=== PATIENT | female | born 1990 | race Two or more races ===

== ENCOUNTER 2016-10-25 17:39 | Inpatient (IN) | payer MEDICAID, OTHER ==
[~2016-10-25] VITALS: Ht 162.6 cm; Wt 65.3 kg
[2016-10-25 18:05] VITALS: BP 101/63
[2016-10-25] MEDS ORDERED: fentaNYL 100 mcg/2 mL IV ONE ×2 (18:30→20:45)
--- NOTE | 2016-10-25 18:35 | Emergency Room Report ---
History of Present Illness General Chief Complaint: General Complaint Source: Patient Present Illness HPI 26YOF with severe lower back pain, "leakage" from post-op wound. Large amount of fluid came out of wound per patient, when she got up this morning to use bathroom and sat on toilet. Also stating she wasnt discharged with "her pain regimen." Surgery was for ?trauma sustained when she fell on lower back 2 years ago. Denies lower extremity weakness, pain, numbness, tingling. Denies urinary/fecal incontinence. Denies fever/chills, urinary compliants. Spoke to Dr Ramirez who performed discectomy yesterday. States patient had no leakage at time of closure. Was advised for strict bedrest. States Dr Ralph (sp?) Neurosurgery to see patient here. I called Dr Ralph per Dr Ramirez's request, but he stated he is not available to see patient. No urgent need for MRI now Admit to Dr Brito requests iv vancomycin ppx as well Allergies: Coded Allergies: ACETAMINOPHEN (Verified Allergy, Unknown, 10/25/16) CODEINE (Verified Allergy, Unknown, 10/25/16) Patient History Past Medical History: none Past Surgical History: other - see hpi Pertinent Family History: none Now: No Immunizations: UTD Reviewed Nursing Documentation: PMH: Agreed, PSxH: Agreed Nursing Documentation-PMH Past Medical History: No Stated History Review of Systems All Other Systems: negative except mentioned in HPI Physical Exam Vital Signs Date Time Temp Pulse Resp B/P Pulse Ox O2 Delivery O2 Flow Rate FiO2 10/25/16 17:43 98.4 95 26 96/54 100 Room Air Sp02 EP Interpretation: reviewed, abnormal General Appearance: normal inspection, well appearing, no apparent distress, alert, GCS 15, non-toxic Head: normocephalic, atraumatic Eyes: bilateral eye EOMI, bilateral eye PERRL ENT: normal ENT inspection, hearing grossly normal, normal voice Neck: normal inspection, full range of motion, supple, no bony tend Respiratory: normal inspection, lungs clear, normal breath sounds, no respiratory distress, no retraction, no wheezing Cardiovascular #1: regular rate, rhythm, no edema Gastrointestinal: normal inspection, normal bowel sounds, non tender, soft, no guarding, no hernia Genitourinary: no CVA tenderness Musculoskeletal: other - Lower back: 6cm linear post-op scar. Minor wound dehiscence at superior portion. Ttp around superior part of wound with serosanguinous leakage on palpation. No palpable mass, abscess. No pus drainage. No surrounging wound erythema or cellulitis Neurologic: normal inspection, alert, oriented x3, responsive, platform operations director III-XII nml as tested, motor strength/tone normal, speech normal Psychiatric: normal inspection, judgement/insight normal, mood/affect normal Skin: normal inspection, normal color, no rash Medical Decision Making Diagnostic Impression: Primary Impression: Lower back pain Qualified Codes: M54.5 - Low back pain Additional Impression: Leukocytosis Qualified Codes: D72.825 - Bandemia ER Course Lower back pain s/p diskectomy yesterday - Afebrile initially then spiked fever in ED. VS otherwise stable. - Leuks ~18K - No metabolic abnormalities - Patient has not given Urine at time of admission - Empiric dose of Vanc given in ED for post-op infection. Blood Cx pending - No sign of abscess or neuro deficit to warrant transfer or STAT MRI at this time - Endorsed to Dr Brito for med/surg admission - Dr Ramirez to see patient in morning. Last Vital Signs Date Time Temp Pulse Resp B/P Pulse Ox O2 Delivery O2 Flow Rate FiO2 10/25/16 17:43 98.4 95 26 96/54 100 Room Air Status: improved Disposition: ADMITTED INPATIENT Condition: Serious ERASMO FISHER M.D. October 25, 2016 18:35
[2016-10-25] MEDS ORDERED: Vancomycin 1 GM in NS 275 ML IVPB ONE (18:45)
[2016-10-25 18:57] LABS: INR 1.1 (0.9-1.1); PROTHROMBIN TIME 10.7 SEC (9.30-11.50)
[2016-10-25 19:00] LABS: ALANINE AMINOTRANSFERASE 18 U/L (3-33); ALBUMIN/GLOBULIN RATIO 1.3 (1.0-2.7); ANION GAP 14 (5-15); ASPARTATE AMINO TRANSFERASE 47 U/L (5-40); CARBON DIOXIDE 26 mEQ/L (20-30); CHLORIDE 98 mEQ/L (98-107); CREATININE 0.8 mg/dL (0.5-0.9); GLOMERULAR FILTRATION RATE > 60 mL/min (>60); HEMOLYSIS 3; POTASSIUM 3.9 mEQ/L (3.4-4.9); SODIUM 138 mEQ/L (135-145); TOTAL PROTEIN 7.2 g/dL (6.6-8.7)
[2016-10-25] MEDS ORDERED: Tubing IV Cassette IV ONE (19:09)
[2016-10-25] MEDS ORDERED: NS 275 ML ONE (19:09)
[2016-10-25] MEDS ORDERED: Vancomycin 1gm inj IVPB ONE (19:09)
[2016-10-25] MEDS ORDERED: NORCO 10-325 T1 EACH ORAL (19:14)
[2016-10-25] MEDS ORDERED: CEPHALEXIN500 MG ORAL (19:14)
[2016-10-25] MEDS ORDERED: ZOFRAN4 M3 ORAL (19:14)
[2016-10-25] MEDS ORDERED: DILAUDID4 MG ORAL (19:14)
[2016-10-25 19:25] LABS: BASOPHILS % (AUTO) 0.2 % (0.0-2.0); LYMPHOCYTES % (AUTO) 14.3 % (20.0-45.0); MEAN CORPUSCULAR HEMOGLOBIN 34.8 PG (27.0-31.0); MEAN CORPUSCULAR HGB CONC 37.8 G/DL (32.0-36.0); MEAN CORPUSCULAR VOLUME 92 FL (80-99); MEAN PLATELET VOLUME 8.4 FL (6.5-10.1); MONOCYTES % (AUTO) 3.5 % (1.0-10.0); NEUTROPHILS % (AUTO) 81.9 % (45.0-75.0); PLATELET COUNT 197 K/UL (150-450); RED BLOOD COUNT 3.67 M/UL (4.20-5.40); RED CELL DISTRIBUTION WIDTH 10.9 % (11.6-14.8); WHITE BLOOD COUNT 17.7 K/UL (4.8-10.8)
[2016-10-25 19:28] LABS: BILIRUBIN,DIRECT 0.2 mg/dL (0.1-0.3)
[2016-10-25 19:30] VITALS: BP 108/47
[2016-10-25 20:18] LABS: APPEARANCE,URINE CLEAR; KETONES,URINE NEGATIVE (NEGATIVE); LEUKOCYTE ESTERASE ,URINE NEGATIVE (NEGATIVE); NITRITE,URINE NEGATIVE (NEGATIVE); PH,URINE 6 (4.5-8.0); PROTEIN,URINE NEGATIVE (NEGATIVE); UROBILINOGEN,URINE NORMAL MG/DL (0.0-1.0)
[2016-10-25 20:25] LABS: BACTERIA,URINE FEW /HPF; SQUAMOUS EPITHELIAL CELL,UR FEW /LPF (NONE/OCC); WBC,URINE 0-2 /HPF (0 - 2)
[2016-10-25] MEDS ORDERED: LR 1000ml 1,000 ML IV SCH (20:45)
[2016-10-25] MEDS ORDERED: Cefepime HCl 2 GM in D5W 110 ML IVPB ONE (21:15)
[2016-10-25 21:37] VITALS: BP 106/67
[2016-10-25] MEDS ORDERED: D5W 55 ML IV ONE (21:56)
[2016-10-25] MEDS ORDERED: Cefepime 2gm ONE (21:56)
[2016-10-25 22:40] VITALS: BP 109/70
--- NOTE | 2016-10-25 22:40 | History & Physical ---
History and Physical History & Physicial Chart reviewed, Patient examined and discussed with Dr. Ramirez. 26 year old female with h/o work-related injury to LS spine who underwent LS spine surgery( L4-L5 and L5-S1 Right sided decompression and foraminotomy) 10/[address] Ramirez. Patient presents with intractable pain and spinal leak. She has been evaluated in ER, and being admitted for pain management and observation with bed rest and IV. antibiotics. EMMA JENKINS October 25, 2016 22:40
[2016-10-25] MEDS ORDERED: Zolpidem 5mg tab ORAL PRN (23:30)
[2016-10-25] MEDS ORDERED: D5 1/2NS w/KCl 20mEq 1,000 ML IV SCH (23:30)
[2016-10-26] VITALS (13 sets, daily range): BP systolic 87–126; BP diastolic 49–69
[2016-10-26] MEDS: Norco 7.5mg/325mg tab ORAL PRN ×2 (00:50→05:44)
--- NOTE | 2016-10-26 03:45 | History and Physical Report ---
DATE OF ADMISSION: 10/25/2016 ATTENDING PHYSICIAN: Shellie Ramirez M.D. REASON FOR ADMISSION: Intractable pain with spinal fluid leak after spinal surgery. HISTORY OF PRESENT ILLNESS: The patient is a 26-year-old female, who suffered a work-related injury resulting in back pain and lower extremity pain radiation and underwent decompression and foraminotomy of the L4-L5 and L5-S1. The patient presented today with complaint of intractable pain and was also noted to have some spinal fluid leak from the wound site. The patient was evaluated in the emergency room and was given IV antibiotics in view of the elevated temperature. She is being admitted for further management , strict bedrest and pain management as well as intravenous antibiotics. PAST MEDICAL HISTORY: Unremarkable. MEDICATIONS: The patient was given fentanyl in the emergency room for pain control. She has been started on IV vancomycin and IV cefepime. ALLERGIES: None known. REVIEW OF SYSTEMS: General: Denies weight loss. The patient has had some chills in the emergency room. Pulmonary: Denies cough or sputum production. Cardiovascular: Denies chest pain or palpitations. Gastrointestinal: Denies dysphagia, dyspepsia, abdominal pain, nausea, vomiting, or diarrhea. The patient has had constipation. Genitourinary: Denies dysuria or frequency. PHYSICAL EXAMINATION: GENERAL: The patient is alert and oriented, pleasant female, in mild discomfort. VITAL SIGNS: Blood pressure is 94/60 up to 110/70 with a heart rate of 103, and sinus tachycardia. HEENT: Unremarkable. NECK: Supple. LUNGS: Without rales or wheezes. CARDIAC: S1, S2 are normal without S3, S4. Jugular venous pressure is normal. ABDOMEN: Soft and nontender without hepatosplenomegaly. Bowel sounds are present. EXTREMITIES: Without cyanosis, clubbing, or edema. BACK: Reveals fresh surgical scar without evidence of infection or erythema. A small amount of leakage is noted. The pads are moist. NEUROLOGIC: Nonfocal. LABORATORY DATA: WBC was 17.7, hemoglobin 12.8, and hematocrit 33.7 with 82% neutrophils and 14% lymphocytes. BMP was unremarkable, glucose is 118 and bilirubin 1.3. AST is 47. PT and PTT are within normal limits. IMPRESSION: 1. Status post spine surgery with intractable pain. 2. Spinal leak due to dural tear. 3. Leukocytosis and fever. Rule out infection or possible reaction to spinal leak. PLAN: The patient will be admitted to the medical/surgical floor. We will be put at bedrest in supine position. Diamox 250 every 6 hours will be started . IV antibiotics with vancomycin and cefepime has been initiated. ID consultation has been requested from Dr. Fraga. We will monitor the patient's progress and plan an MRI within the next few days and confirmed continued leak location. At this point, we will manage the spinal fluid leakage. Bola Brito M.D. DR: Jhoana JOB#: [id number] CC: MICHAEL
[2016-10-26] MEDS ORDERED: Vancomycin 1250mg/D5W 275ml IVPB SCH ×2 (07:00)
[2016-10-26] MEDS ORDERED: Vancomycin 750mg/D5W 275ml IVPB SCH ×4 (08:00→23:00)
--- NOTE | 2016-10-26 08:55 | Consultation ---
Consult Note Consult Note sp l4-s1 laminectomy/foraminotomy with dural tear, and with persistent csf leak Assessment/Plan full note dictated plan MRI will require redo lami and dural repair PIERRE GRIGGS Oct 26, 2016 08:55
[2016-10-26] MEDS ORDERED: acetaZOLAMIDE 500mg Inj IVP SCH (09:00)
[2016-10-26] MEDS ORDERED: Docusate 100mg cap ORAL SCH (09:00)
[2016-10-26] MEDS ORDERED: Cefepime HCl 2 GM in D5W 110 ML IVPB SCH (09:00)
--- NOTE | 2016-10-26 10:15 | Consultation ---
DATE OF CONSULTATION: 10/26/2016 SPINE SURGICAL CONSULTATION: REFERRING PHYSICIANS: Shellie Ramirez M.D. and Bola Brito M.D. REASON FOR ADMISSION: CSF leak status post laminectomy L4, L5, and S1. HISTORY OF PRESENT ILLNESS: The patient is 26-year-old woman, who underwent surgical decompression two days ago at L4-L5 and L5-S1. During the surgery, there was a CSF leak which was repaired secondarily. It was covered with Dura Seal, FloSeal, and muscle graft per Dr. Ramirez, who contacted me this morning. The patient went home with instructions on bedrest, however, the patient started developing leakage from her back wound and headaches. She came in through the emergency room also with an elevated temperature and leukocytosis and has been on antibiotics per Dr. Fraga. The patient indicates that most of the leg pain has resolved as well as the numbness and tingling, however, she has subjective weakness in her right lower extremity as well as positional headaches. When standing, she has more significant headache than when lying flat. PAST MEDICAL HISTORY: Unremarkable. MEDICATIONS: I have reviewed the medication reconciliation report. She is on IV antibiotics per Infectious Disease. ALLERGIES: No known drug allergies. PHYSICAL EXAMINATION: The patient examined while lying flat in the hospital bed. She has abdominal tenderness on the left lower quadrant. She has positive straight leg raise on the right lower extremity. Motor strength testing is 5/5 throughout with the exception of right gastroc soleus which is 4/5. Reflexes are symmetric in both lower extremities. Sensation is intact both lower extremities. Examination of the back wound demonstrates 4 to 5 inches incision from L3 through S2. There is drainage of clear fluid from the upper third of her incision. The dressing which was changed earlier this morning is 50% saturated. The surgical carline are intact. There is no erythema or cellulitis. IMPRESSION: 1. Status post two-level lumbar laminectomy at L4, L5, S1 with intraoperative dural tear with ongoing cerebrospinal fluid leak. 2. Leukocytosis and fever being managed by Infectious Disease. PLAN: We will need to obtain a MRI of the lumbar spine and plan surgical decompression/dural repair. Surgery will be scheduled accordingly once we contact the health insurance adjuster for authorization. Amador Payton Lott DR: Juan JOB#: [id number] CC:
[2016-10-26 12:26] LABS: BASOPHILS % (AUTO) 0.5 % (0.0-2.0); EOSINOPHILS % (AUTO) 0.3 % (0.0-3.0); LYMPHOCYTES % (AUTO) 11.1 % (20.0-45.0); MEAN CORPUSCULAR HEMOGLOBIN 31.8 PG (27.0-31.0); MEAN CORPUSCULAR HGB CONC 34.4 G/DL (32.0-36.0); MEAN CORPUSCULAR VOLUME 92 FL (80-99); MEAN PLATELET VOLUME 8.2 FL (6.5-10.1); NEUTROPHILS % (AUTO) 81.1 % (45.0-75.0); PLATELET COUNT 235 K/UL (150-450); RED BLOOD COUNT 4.01 M/UL (4.20-5.40); RED CELL DISTRIBUTION WIDTH 11.2 % (11.6-14.8)
--- NOTE | 2016-10-26 12:32 | Diagnostic Imaging Report ---
Indication: Intractable low back pain, spinal fluid leak from site of discectomy surgery performed 10/24/2016 Technique: Sagittal T1 and T2 fast spin echo, sagittal STIR, axial T1 and T2 fast spin-echo images of the lumbar spine Comparison: None Findings: There is a laminotomy defect involving the right L5 lamina. There is a small epidural fluid collection which measures up to 3 mm thick extending approximately 2 cm inferior to the laminotomy defect. This questionably communicates with a larger area of fluid which is immediately superficial to the right-sided L3, L4, L5, and S1 posterior elements. This fluid collection measures approximately 4.2 cm AP by 2 cm transverse by 11 cm craniocaudad. A small amount of fluid also tracks to the left of midline, likewise between the posterior elements and paraspinous musculature. There is also considerable bilateral symmetric edema of the posterior subcutaneous fat which extends cephalad in the thoracic region well beyond the imaging volume and extends caudad to the retro-sacral region. There is no clear communication of the deep collection with the superficial edema or the skin, although there is questionably some communication at the L3 level, best seen on axial image 15 of series 7. Extending from the mid L2 level to the mid L4 level, there is suggestion of slight anterior displacement of the nerve roots, particularly just to the right of midline. However, no definite abnormality of the configuration of the thecal sac At L4-5, there is degenerative disc narrowing and posterior disc protrusion, disc protruding approximately 3 mm posterior to the posterior elements of L4 and demonstrating a small high intensity zone. This results in mild narrowing of the spinal canal at this level, spinal canal narrowed by under 25%. The bulging disc enters but does not severely compromise the neural foramina bilaterally. The previously described small epidural collection is located inferior to the protruding disc. There is also mild posterior disc protrusion with a small high intensity zone at L5-S1, disc protruding approximately 2 mm beyond the posterior margin of the vertebral bodies, but not resulting in any significant spinal stenosis. The conus medullaris terminates at the inferior L1 level. The vertebral body marrow signal is preserved. The bony alignment is normal. The remaining discs demonstrate normal height and signal. At the remaining levels, no significant disc bulge or protrusion, spinal stenosis, or neural foraminal stenosis. Extraspinal soft tissues are significant for free fluid within the pelvic cul-de-sac. There are multiple cervical nabothian is. There is fluid within the endometrial cavity and endocervical canal. Impression: Irregular 4.2 x 2 x 11 cm fluid collection between the L3, L4, L5, and S1 posterior elements. This could represent a seroma or other routine postsurgical fluid collection given history of recent surgery. However, given stated clinical history of cerebrospinal fluid leak to the skin, it is also possible that this represents leaked cerebrospinal fluid. There is possible communication with the spinal canal at the level of the right L5 laminotomy defect to the right of midline, particularly in view of an adjacent small epidural collection at this level. It is possible that this is where the clinically evident cerebral cerebrospinal fluid leak is located, although this cannot be stated with any certainty. There is also fairly extensive edema of the lumbar subcutaneous fat. This is most likely postsurgical in nature, but communication with the deeper collection cannot be ruled out, particularly in view of the stated clinical history of clinically evident spinal fluid leak. Unusual distribution of the nerve roots between L2 and L4, appearing somewhat anteriorly displaced. This is most likely physiologic, as no other abnormality of the thecal sac is demonstrated. The possibility of a subtl -- e extra dural fluid collection in this area resulting in mass effect should be considered, but is highly unlikely Disc disease at L4-5 and L5-S1, as described. Mild spinal stenosis at L4-5. Incidental finding of likely physiologic free pelvic fluid, fluid within the endometrial cavity, multiple nabothian cysts
[2016-10-26 12:45] LABS: ANION GAP 17 (5-15); CALCIUM 8.9 mg/dL (8.6-10.2); CARBON DIOXIDE 21 mEQ/L (20-30); CHLORIDE 97 mEQ/L (98-107); CREATININE 0.7 mg/dL (0.5-0.9); GLOMERULAR FILTRATION RATE > 60 mL/min (>60); HEMOLYSIS 5; POTASSIUM 4.1 mEQ/L (3.4-4.9); SODIUM 135 mEQ/L (135-145)
--- NOTE | 2016-10-26 13:35 | Cardiology Progress Note ---
Assessment/Plan Status Narrative 1. H/O work-related injury of LS spine 2. s/p LS spine decompression and foraminotomy R side L4-L5 and L5-S1- 08/24/16 3. CSF leak due to dural tear 4. Leukocytosis- improving 5. Tachycardia- ? volume depletion vs anxiety Assessment/Plan IV NS bolus now pre-op.then at 125 cc/h. NPO Pain meds Zofran PRN CXR for baseline. Bed rest. Diamox 250 mg Q6h. Proceed with surgery today. Discussed with Dr. Ramirez and Dr. Lott. Patient is stable to proceed with surgery today. Discussed with Family and with RN. Subjective Cardiovascular: Reports: no symptoms, Denies: chest pain, edema Respiratory: Denies: cough, orthopnea Gastrointestinal/Abdominal: Reports: no symptoms Genitourinary: Reports: no symptoms, other - [place] Subjective Seen by Dr. Lott, planned for surgery this afternoon. Had increased H/A today. Pain improved. Had liquids at 8 AM. c?o nausea. Objective Last 24 Hour Vital Signs Date Time Temp Pulse Resp B/P Pulse Ox O2 Delivery O2 Flow Rate FiO2 10/26/16 12:00 99.0 125 20 102/64 97 Room Air 10/26/16 11:37 97.7 10/26/16 08:00 97.7 111 18 104/58 95 Room Air 10/26/16 04:00 98.4 102 18 87/59 100 Room Air 10/25/16 22:49 98.4 97 16 106/67 98 Room Air 10/25/16 22:40 105 20 109/70 98 Room Air 10/25/16 21:37 98.4 97 16 106/67 98 Room Air 10/25/16 21:18 98.5 10/25/16 19:46 98.5 10/25/16 19:30 100.9 113 21 108/47 97 Room Air 10/25/16 18:05 89 19 101/63 100 Room Air 10/25/16 17:43 98.4 95 26 96/54 100 Room Air EENT: PERRL/EOMI Neck: non-tender, supple Cardiovascular: normal rate, regular rhythm, no gallop/murmur Respiratory/Chest: lungs clear Abdomen: normal bowel sounds, non tender, soft, no organomegaly, no mass Extremities: normal range of motion, non-tender, normal inspection, no calf tenderness, no swelling Intake and Output 10/25/16 10/26/16 19:00 07:00 Intake Total 275 ml Output Total 1130 ml Balance -855 ml Intake IV Total 275 ml Output Urine Total 1130 ml # Voids 1 CXR: other - pending Laboratory Tests Test 10/25/16 18:00 10/25/16 19:50 10/26/16 12:15 White Blood Count 17.7 K/UL (4.8-10.8) H 14.0 K/UL (4.8-10.8) H Red Blood Count 3.67 M/UL (4.20-5.40) L 4.01 M/UL (4.20-5.40) L Hemoglobin 12.8 G/DL (12.0-16.0) 12.8 G/DL (12.0-16.0) Hematocrit 33.7 % (37.0-47.0) L 37.1 % (37.0-47.0) Mean Corpuscular Volume 92 FL (80-99) 92 FL (80-99) Mean Corpuscular Hemoglobin 34.8 PG (27.0-31.0) H 31.8 PG (27.0-31.0) H Mean Corpuscular Hemoglobin Concent 37.8 G/DL (32.0-36.0) H 34.4 G/DL (32.0-36.0) Red Cell Distribution Width 10.9 % (11.6-14.8) L 11.2 % (11.6-14.8) L Platelet Count 197 K/UL (150-450) 235 K/UL (150-450) Mean Platelet Volume 8.4 FL (6.5-10.1) 8.2 FL (6.5-10.1) Neutrophils (%) (Auto) 81.9 % (45.0-75.0) H 81.1 % (45.0-75.0) H Lymphocytes (%) (Auto) 14.3 % (20.0-45.0) L 11.1 % (20.0-45.0) L Monocytes (%) (Auto) 3.5 % (1.0-10.0) 7.0 % (1.0-10.0) Eosinophils (%) (Auto) 0.0 % (0.0-3.0) 0.3 % (0.0-3.0) Basophils (%) (Auto) 0.2 % (0.0-2.0) 0.5 % (0.0-2.0) Prothrombin Time 10.7 SEC (9.30-11.50) Prothromb Time International Ratio 1.1 (0.9-1.1) Activated Partial Thromboplast Time 28 SEC (23-33) Sodium Level 138 mEQ/L (135-145) 135 mEQ/L (135-145) Potassium Level 3.9 mEQ/L (3.4-4.9) 4.1 mEQ/L (3.4-4.9) Chloride Level 98 mEQ/L (98-107) 97 mEQ/L (98-107) L Carbon Dioxide Level 26 mEQ/L (20-30) 21 mEQ/L (20-30) Anion Gap 14 (5-15) 17 (5-15) H Blood Urea Nitrogen 8 mg/dL (7-23) 6 mg/dL (7-23) L Creatinine 0.8 mg/dL (0.5-0.9) 0.7 mg/dL (0.5-0.9) Estimat Glomerular Filtration Rate > 60 mL/min (>60) > 60 mL/min (>60) Glucose Level 118 mg/dL (74-106) H 100 mg/dL (74-106) Calcium Level 9.0 mg/dL (8.6-10.2) 8.9 mg/dL (8.6-10.2) Total Bilirubin 1.3 mg/dL (0.0-1.2) H Direct Bilirubin 0.2 mg/dL (0.1-0.3) Aspartate Amino Transf (AST/SGOT) 47 U/L (5-40) H Alanine Aminotransferase (ALT/SGPT) 18 U/L (3-33) Alkaline Phosphatase 46 U/L (35-104) Total Protein 7.2 g/dL (6.6-8.7) Albumin 4.1 g/dL (3.5-5.2) Globulin 3.1 g/dL Albumin/Globulin Ratio 1.3 (1.0-2.7) Urine Color Pale yellow Urine Appearance Clear Urine pH 6 (4.5-8.0) Urine Specific [place] 1.010 (1.005-1.035) Urine Protein Negative (NEGATIVE) Urine Glucose (UA) Negative (NEGATIVE) Urine Ketones Negative (NEGATIVE) Urine Occult Blood 1+ (NEGATIVE) H Urine Nitrite Negative (NEGATIVE) Urine Bilirubin Negative (NEGATIVE) Urine Urobilinogen Normal MG/DL (0.0-1.0) Urine Leukocyte Esterase Negative (NEGATIVE) Urine RBC 2-4 /HPF (0 - 2) H Urine WBC 0-2 /HPF (0 - 2) Urine Squamous Epithelial Cells Few /LPF (NONE/OCC) Urine Bacteria Few /HPF (NONE) Urine HCG, Qualitative Negative Objective EKG: Sinus tachy, NS ST-T changes. EMMA JENKINS Oct 26, 2016 13:35
[2016-10-26] MEDS ORDERED: NS 250 ML IVPB ONE (14:00)
[2016-10-26] MEDS ORDERED: D5 1/2NS w/KCl 20mEq 1,000 ML IV SCH ×2 (15:00→16:00)
[2016-10-26] MEDS ORDERED: Bupivacaine w/Epi 0.5% 30ml Vial INJ ONE (15:04)
[2016-10-26] MEDS ORDERED: Thrombin 5000 units TOPIC ONE (15:04)
[2016-10-26] MEDS ORDERED: Bacitracin 50000 Units Vial ONE ×2 (15:05→19:34)
[2016-10-26] MEDS ORDERED: Gelfoam Absorbable 1gm powder pkt TOPIC ONE (15:05)
[2016-10-26] MEDS ORDERED: Thrombin 5000 units spray kit TOPIC ONE (15:05)
--- NOTE | 2016-10-26 15:28 | Pre-Procedure Note/Attestation ---
Pre-Procedure Note/Attestation Complete Prior to Procedure Procedure Narrative: sp l4-s1 laminectomy with dural tear Indications for Procedure Pre-Operative Diagnosis: l4-s1 redo laminectomy and repair of dural leak Attestation I attest that I discussed the nature of the procedure; its benefits; risks and complications; and alternatives (and the risks and benefits of such alternatives ), prior to the procedure, with the patient (or the patient's legal airline security representative). I attest that, if there was a reasonable possibility of needing a blood transfusion, the patient (or the patient's legal airline security representative) was given the [facility] standardized written summary, pursuant to the [place] Blood Safety Act ([place] Health and Safety Code # 1645, as amended). I attest that I re-evaluated the patient just prior to the surgery and that there has been no change in the patient's H&P, except as documented below: PIERRE GRIGGS Oct 26, 2016 15:28
[2016-10-26] MEDS ORDERED: Midazolam 2mg/2ml Inj ONE (15:30)
[2016-10-26] MEDS ORDERED: Lidocaine 1% MPF 10mg/ml 5ml ONE (15:30)
[2016-10-26] MEDS ORDERED: fentaNYL 100 mcg/2 mL IV ONE (15:30)
[2016-10-26] MEDS ORDERED: Dexamethasone 4mg/ml vial ONE (15:30)
[2016-10-26] MEDS ORDERED: LR 1000ml ONE (15:30)
[2016-10-26] MEDS ORDERED: Glycopyrrolate 0.2mg/ml 1ml Vial ONE (15:30)
[2016-10-26] MEDS ORDERED: Propofol 10mg/ml 100ml btl IV ONE (15:30)
[2016-10-26] MEDS ORDERED: Neostigmine 1mg/ml 10ml Inj ONE (15:30)
[2016-10-26] MEDS ORDERED: Nimbex 2mg/ml Inj 10ML IVP ONE (15:30)
[2016-10-26] MEDS ORDERED: NS Irrig 1000ml ONE (15:30)
--- NOTE | 2016-10-26 15:37 | Brief Operative Note ---
Immediate Post Operative Note Operative Note Pre-op Diagnosis: sp l4-s1 laminectomy with dural leak Procedure: l4-s1 redo laminectomy and repair of dural leak Post-op Diagnosis: same as pre-op Findings: consistent w/pre-op dx studies Surgeon: dewey Marble Machine Tender: stacey tomlinson Anesthesiologist: ally Queen Anesthesia: general Specimen: none Complications: none Condition: stable Estimated Blood Loss: minimal Drains: none PIERRE GRIGGS Oct 26, 2016 15:37
--- NOTE | 2016-10-26 15:51 | Diagnostic Imaging Report ---
Indication: Shortness of breath Technique: One view of the chest Comparison: none Findings: The lungs and pleural space are clear. Heart size is upper limits of normal. Surgical skin carline are noted over the lower lumbar spine. Impression: No acute process
--- NOTE | 2016-10-26 16:32 | Anethesia Preoperative Eval ---
Anesthesia Pre-op PMH/ROS General Date of Evaluation: Oct 26, 2016 Time of Evaluation: 15:21 Anesthesiologist: Bethany ASA Score: ASA 1 - Emergency Mallampati Score Class I : Soft palate, uvula, fauces, pillars visible Class II: Soft palate, uvula, fauces visible Class III: Soft palate, base of uvula visible Class IV: Only hard plate visible Mallampati Classification: Class I Surgeon: Oren Diagnosis: Back Pain Surgical Procedure: Repair Dural Leak Anesthesia History: none Family History: no anesthesia problems Allergies: Coded Allergies: ACETAMINOPHEN (Verified Allergy, Unknown, 10/25/16) CODEINE (Verified Allergy, Unknown, 10/25/16) Medications: see eMAR Past Medical History PSxH Narrative: Lumbar Spine SX 2 days Anesthesia Pre-op Phys. Exam Physician Exam Last Vital Signs Date Time Temp Pulse Resp B/P Pulse Ox O2 Delivery O2 Flow Rate FiO2 10/26/16 12:00 99.0 125 20 102/64 97 Room Air Constitutional: NAD Neurologic: CN 2-12 intact Cardiovascular: RRR Respiratory: CTA Gastrointestinal: S/NT/ND Airway Exam Mallampati Score: Class I MO: full ROM: full Teeth: intact Anesthesia Pre-op A/P Labs Hematology Test 10/25/16 18:00 10/26/16 12:15 White Blood Count 17.7 K/UL (4.8-10.8) H 14.0 K/UL (4.8-10.8) H Red Blood Count 3.67 M/UL (4.20-5.40) L 4.01 M/UL (4.20-5.40) L Hemoglobin 12.8 G/DL (12.0-16.0) 12.8 G/DL (12.0-16.0) Hematocrit 33.7 % (37.0-47.0) L 37.1 % (37.0-47.0) Mean Corpuscular Volume 92 FL (80-99) 92 FL (80-99) Mean Corpuscular Hemoglobin 34.8 PG (27.0-31.0) H 31.8 PG (27.0-31.0) H Mean Corpuscular Hemoglobin Concent 37.8 G/DL (32.0-36.0) H 34.4 G/DL (32.0-36.0) Red Cell Distribution Width 10.9 % (11.6-14.8) L 11.2 % (11.6-14.8) L Platelet Count 197 K/UL (150-450) 235 K/UL (150-450) Mean Platelet Volume 8.4 FL (6.5-10.1) 8.2 FL (6.5-10.1) Neutrophils (%) (Auto) 81.9 % (45.0-75.0) H 81.1 % (45.0-75.0) H Lymphocytes (%) (Auto) 14.3 % (20.0-45.0) L 11.1 % (20.0-45.0) L Monocytes (%) (Auto) 3.5 % (1.0-10.0) 7.0 % (1.0-10.0) Eosinophils (%) (Auto) 0.0 % (0.0-3.0) 0.3 % (0.0-3.0) Basophils (%) (Auto) 0.2 % (0.0-2.0) 0.5 % (0.0-2.0) Coagulation Test 10/25/16 18:00 Prothrombin Time 10.7 SEC (9.30-11.50) Prothromb Time International Ratio 1.1 (0.9-1.1) Activated Partial Thromboplast Time 28 SEC (23-33) Chemistry Test 10/25/16 18:00 10/26/16 12:15 Sodium Level 138 mEQ/L (135-145) 135 mEQ/L (135-145) Potassium Level 3.9 mEQ/L (3.4-4.9) 4.1 mEQ/L (3.4-4.9) Chloride Level 98 mEQ/L (98-107) 97 mEQ/L (98-107) L Carbon Dioxide Level 26 mEQ/L (20-30) 21 mEQ/L (20-30) Anion Gap 14 (5-15) 17 (5-15) H Blood Urea Nitrogen 8 mg/dL (7-23) 6 mg/dL (7-23) L Creatinine 0.8 mg/dL (0.5-0.9) 0.7 mg/dL (0.5-0.9) Estimat Glomerular Filtration Rate > 60 mL/min (>60) > 60 mL/min (>60) Glucose Level 118 mg/dL (74-106) H 100 mg/dL (74-106) Calcium Level 9.0 mg/dL (8.6-10.2) 8.9 mg/dL (8.6-10.2) Total Bilirubin 1.3 mg/dL (0.0-1.2) H Direct Bilirubin 0.2 mg/dL (0.1-0.3) Aspartate Amino Transf (AST/SGOT) 47 U/L (5-40) H Alanine Aminotransferase (ALT/SGPT) 18 U/L (3-33) Alkaline Phosphatase 46 U/L (35-104) Total Protein 7.2 g/dL (6.6-8.7) Albumin 4.1 g/dL (3.5-5.2) Globulin 3.1 g/dL Albumin/Globulin Ratio 1.3 (1.0-2.7) Urine Test Test 10/25/16 19:50 Urine HCG, Qualitative Negative Risk Assessment & Plan Assessment: ASA 1E Status Change Before Surgery: No Pre-Antibiotics Dru Grams Ancef IV Given Within 1 Hr of Incision: Yes Time Given: 15:46 Bret Sims MD Oct 26, 2016 16:32
[2016-10-26] MEDS ORDERED: LR 1000ml 1,000 ML IVLG SCH (16:35)
--- NOTE | 2016-10-26 16:38 | Immediate Post-Op Evaluation ---
Immediate Post-Op Evalulation Immediate Post-Op Evalulation Procedure: Repair Lumbar Dural Leak Date of Evaluation: Oct 26, 2016 Time of Evaluation: 18:40 IV Fluids: 1000 LR Blood Products: 0 Estimated Blood Loss: 50 Urinary Output: 650 Blood Pressure Systolic: 117 Blood Pressure Diastolic: 69 Pulse Rate: 103 Respiratory Rate: 16 O2 Sat by Pulse Oximetry: 98 Temperature (Fahrenheit): 97.8 Pain Score (1-10): 3 Nausea: No Vomiting: No Complications 0 Patient Status: awake, reacts, patent, extubated, none Hydration Status: adequate Dru Grams Ancef IV Given Within 1 Hr of Incision: Yes Time Given: 15:46 Bret Sims MD Oct 26, 2016 16:38
[2016-10-26] MEDS ORDERED: Midazolam 2mg/2ml Inj IVP PRN (16:45)
[2016-10-26] MEDS ORDERED: Ketorolac 60mg Inj IV PRN (16:45)
[2016-10-26] MEDS ORDERED: Metoclopramide 10mg/2ml Inj IVP PRN ×2 (16:45→18:00)
[2016-10-26] MEDS ORDERED: fentaNYL 100 mcg/2 mL IV PRN (16:45)
[2016-10-26] MEDS ORDERED: Atropine Inj 1mg/10ml Syr IV PRN (16:45)
[2016-10-26] MEDS ORDERED: Meperidine 25mg/0.5ml Inj IV PRN (16:45)
[2016-10-26] MEDS ORDERED: DiphenhydrAMINE 50mg/ml Inj IVP PRN (16:45)
[2016-10-26] MEDS ORDERED: Hydromorphone 0.5mg/0.5ml inj IVP PRN (16:45)
[2016-10-26] MEDS ORDERED: Ketorolac 30mg Inj IV PRN (16:45)
[2016-10-26] MEDS ORDERED: Norco 5mg/325mg tab ORAL PRN ×2 (16:45→18:00)
[2016-10-26] MEDS ORDERED: Norco 7.5mg/325mg tab ORAL PRN ×3 (16:45→18:00)
[2016-10-26] MEDS ORDERED: LORazepam Inj 2mg/ml 1ml IV PRN (16:45)
--- NOTE | 2016-10-26 16:47 | Infectious Diseases Prog Note ---
Assessment/Plan Assessment/Plan Full consult dictated: A) 1) dural/csf leak, leukocytosis, rule out meningitis, fevers, ? sepsis - s/p repair dural leak 2) s/p L4-S1 laminectomy, hx lbp 3) allergies - acetaminophen and codeine 4) sh-negative, fh-neg, mar noted, d/w RN 5) d/w RN P) 1) vancomycin and cefepime for now 2) check csf if available 3) watch labs 4) d/w Dr. Brito 5) thank you Subjective Allergies: Coded Allergies: ACETAMINOPHEN (Verified Allergy, Unknown, 10/25/16) CODEINE (Verified Allergy, Unknown, 10/25/16) Objective Vital Signs Last 24 Hour Vital Signs Date Time Temp Pulse Resp B/P Pulse Ox O2 Delivery O2 Flow Rate FiO2 10/26/16 12:00 99.0 125 20 102/64 97 Room Air 10/26/16 11:37 97.7 10/26/16 08:00 97.7 111 18 104/58 95 Room Air 10/26/16 04:00 98.4 102 18 87/59 100 Room Air 10/25/16 22:49 98.4 97 16 106/67 98 Room Air 10/25/16 22:40 105 20 109/70 98 Room Air 10/25/16 21:37 98.4 97 16 106/67 98 Room Air 10/25/16 21:18 98.5 10/25/16 19:46 98.5 10/25/16 19:30 100.9 113 21 108/47 97 Room Air 10/25/16 18:05 89 19 101/63 100 Room Air 10/25/16 17:43 98.4 95 26 96/54 100 Room Air Height (Feet): 5 Height (Inches): 4.00 Weight (Pounds): 144 Laboratory Tests Test 10/25/16 18:00 10/25/16 19:50 10/26/16 12:15 White Blood Count 17.7 K/UL (4.8-10.8) H 14.0 K/UL (4.8-10.8) H Red Blood Count 3.67 M/UL (4.20-5.40) L 4.01 M/UL (4.20-5.40) L Hemoglobin 12.8 G/DL (12.0-16.0) 12.8 G/DL (12.0-16.0) Hematocrit 33.7 % (37.0-47.0) L 37.1 % (37.0-47.0) Mean Corpuscular Volume 92 FL (80-99) 92 FL (80-99) Mean Corpuscular Hemoglobin 34.8 PG (27.0-31.0) H 31.8 PG (27.0-31.0) H Mean Corpuscular Hemoglobin Concent 37.8 G/DL (32.0-36.0) H 34.4 G/DL (32.0-36.0) Red Cell Distribution Width 10.9 % (11.6-14.8) L 11.2 % (11.6-14.8) L Platelet Count 197 K/UL (150-450) 235 K/UL (150-450) Mean Platelet Volume 8.4 FL (6.5-10.1) 8.2 FL (6.5-10.1) Neutrophils (%) (Auto) 81.9 % (45.0-75.0) H 81.1 % (45.0-75.0) H Lymphocytes (%) (Auto) 14.3 % (20.0-45.0) L 11.1 % (20.0-45.0) L Monocytes (%) (Auto) 3.5 % (1.0-10.0) 7.0 % (1.0-10.0) Eosinophils (%) (Auto) 0.0 % (0.0-3.0) 0.3 % (0.0-3.0) Basophils (%) (Auto) 0.2 % (0.0-2.0) 0.5 % (0.0-2.0) Prothrombin Time 10.7 SEC (9.30-11.50) Prothromb Time International Ratio 1.1 (0.9-1.1) Activated Partial Thromboplast Time 28 SEC (23-33) Sodium Level 138 mEQ/L (135-145) 135 mEQ/L (135-145) Potassium Level 3.9 mEQ/L (3.4-4.9) 4.1 mEQ/L (3.4-4.9) Chloride Level 98 mEQ/L (98-107) 97 mEQ/L (98-107) L Carbon Dioxide Level 26 mEQ/L (20-30) 21 mEQ/L (20-30) Anion Gap 14 (5-15) 17 (5-15) H Blood Urea Nitrogen 8 mg/dL (7-23) 6 mg/dL (7-23) L Creatinine 0.8 mg/dL (0.5-0.9) 0.7 mg/dL (0.5-0.9) Estimat Glomerular Filtration Rate > 60 mL/min (>60) > 60 mL/min (>60) Glucose Level 118 mg/dL (74-106) H 100 mg/dL (74-106) Calcium Level 9.0 mg/dL (8.6-10.2) 8.9 mg/dL (8.6-10.2) Total Bilirubin 1.3 mg/dL (0.0-1.2) H Direct Bilirubin 0.2 mg/dL (0.1-0.3) Aspartate Amino Transf (AST/SGOT) 47 U/L (5-40) H Alanine Aminotransferase (ALT/SGPT) 18 U/L (3-33) Alkaline Phosphatase 46 U/L (35-104) Total Protein 7.2 g/dL (6.6-8.7) Albumin 4.1 g/dL (3.5-5.2) Globulin 3.1 g/dL Albumin/Globulin Ratio 1.3 (1.0-2.7) Urine Color Pale yellow Urine Appearance Clear Urine pH 6 (4.5-8.0) Urine Specific [place]ole 1.010 (1.005-1.035) Urine Protein Negative (NEGATIVE) Urine Glucose (UA) Negative (NEGATIVE) Urine Ketones Negative (NEGATIVE) Urine Occult Blood 1+ (NEGATIVE) H Urine Nitrite Negative (NEGATIVE) Urine Bilirubin Negative (NEGATIVE) Urine Urobilinogen Normal MG/DL (0.0-1.0) Urine Leukocyte Esterase Negative (NEGATIVE) Urine RBC 2-4 /HPF (0 - 2) H Urine WBC 0-2 /HPF (0 - 2) Urine Squamous Epithelial Cells Few /LPF (NONE/OCC) Urine Bacteria Few /HPF (NONE) Urine HCG, Qualitative Negative Current Medications Medications (Trade) Dose Ordered Sig/Bijal Route PRN Reason Start Time Stop Time Status Last Admin Dose Admin Acetaminophen/ Hydrocodone Bitart 1 ea 1 ea Q6HR PRN ORAL For Pain 10/25/16 23:30 11/01/16 23:29 10/26/16 05:44 Acetazolamide (Diamox) 250 mg Q6HR ORAL 10/26/16 00:00 11/25/16 00:00 10/26/16 05:44 Cefepime HCl/ Dextrose (Maxipime/D5W) 110 ml @ 220 mls/hr EVERY 12 HOURS IVPB 10/26/16 09:00 11/02/16 08:59 10/26/16 11:07 Dextrose/ Electrolytes (D5 0.45%NS W/ KCl 20mEq) 1,000 ml @ 125 mls/hr Q8H IV 10/26/16 15:00 11/25/16 14:59 Docusate Sodium (Colace) 100 mg TWICE A DAY ORAL 10/26/16 09:00 11/25/16 08:59 10/26/16 11:06 Hydromorphone HCl (Dilaudid) 2 mg Q4H PRN SUBQ Moderate Breakthru Pain (5-7) 10/25/16 22:15 11/01/16 22:14 10/26/16 11:07 Ondansetron HCl 4 mg 4 mg Q6H PRN IVP Nausea & Vomiting 10/26/16 13:15 11/25/16 13:14 10/26/16 13:15 Vancomycin HCl 1 ea 1 ea DAILY PRN MISC Per rx protocol 10/26/16 09:00 11/25/16 08:59 Vancomycin HCl/ Dextrose (Vancomycin/D5W) 275 ml @ 183.708 mls/hr Q12H IVPB 10/26/16 23:00 10/31/16 22:59 Zolpidem Tartrate (Ambien) 5 mg HSPRN PRN ORAL Insomnia 10/25/16 23:30 11/24/16 23:29 10/26/16 00:42 CHRIS BELTRAN Oct 26, 2016 16:47
[2016-10-26] MEDS ORDERED: traMADol 50mg tab ORAL PRN (18:00)
[2016-10-26] MEDS ORDERED: Milk of Magnesia 30ml Ud ORAL PRN (18:00)
[2016-10-26] MEDS ORDERED: HYDROmorphone 1mg/ml Carpuject SUBQ PRN (18:00)
[2016-10-26] MEDS ORDERED: HYDROmorphone 1mg/ml Carpuject IVP PRN (18:00)
[2016-10-26] MEDS ORDERED: Vancomycin 1.5 GM in D5W 325 ML IVPB ONE (20:00)
[2016-10-26] MEDS: D5 1/2NS 1,000 ML IV SCH (21:18)
[2016-10-26] MEDS: Cefepime HCl 2 GM in D5W 110 ML IVPB SCH (21:20)
[2016-10-26] MEDS: Pericolace tab ORAL SCH (21:20)
[2016-10-26] MEDS: Docusate 100mg cap ORAL SCH (21:20)
--- NOTE | 2016-10-26 22:00 | Operative Note - Dictated ---
DATE OF OPERATION: 10/26/2016 SURGEON: Amador Lott M.D. PLATE MOUNTER: Logan Foreman PA-C. ANESTHESIA: General endotracheal anesthesia. ANESTHESIOLOGIST: Bret Sims M.D. PREOPERATIVE DIAGNOSES: 1. Status post L4 through S1 laminectomy with intraoperative dural tear. 2. Persistent cerebrospinal fluid leak. POSTOPERATIVE DIAGNOSES: 1. Status post L4 through S1 laminectomy with intraoperative dural tear. 2. Persistent cerebrospinal fluid leak. PROCEDURES: 1. Redo laminectomy at L4, L5, S1. 2. Exploration of wound and identification of dural tear at L5-S1. 3. Primary repair of dural tear using 6-0 Prolene Duraform and Tisseel. 4. Diskectomy right side L4-L5. 5. Use of operating microscope. 6. Use of fluoroscopy for localization purposes. 7. Neurodiagnostic monitoring. ESTIMATED BLOOD LOSS: 50 mL. COMPLICATIONS: None. FINDINGS: 1. Central dural tear L5-S1 at the leading edge of S1. There were two dural tears, one measured 3 millimeters and one measured 4 millimeters and there was a 2 to 3 millimeter bridge between the two tears. 2. Status post facet resection L3-L4 and L4-L5 right side. INDICATIONS: The patient is a 26-year-old, who I met earlier today after the patient was admitted through the ER with clear fluid drainage from her back wound. Intraoperatively, she did have a dural tear. Operating surgeon did contact me to help assist with the repair of the dural tear. After seeing the patient, it was clear that she had extensive amount of drainage from the superior aspect of her incision. She had a positional headache. Surgical intervention was recommended. An MRI scan confirmed these findings. RISK NOTE: The patient was explained in detail the risks and benefits of surgery to include, but not be limited to, those of bleeding, infection, damage to nerves, vessels, tendons, anesthetic risk, allergic reaction, aspiration, and possibly . Potential risk of meningitis was discussed and persistent CSF leak was discussed. The patient elected to proceed. OPERATIVE PROCEDURE IN DETAIL: The patient was taken to the operative suite after general endotracheal anesthesia was induced. She was turned prone onto her radiolucent Sunday frame. She already had a Miranda catheter from the floor. The back was inspected. Back was prepped and draped in usual sterile fashion. Staple remover was used to remove the carline. Her prior incision from L3 through S2 was opened using blunt dissection. Extensive drainage was encountered. Prior sutures were removed. The fascia was already opened from nearly the L2 spinous process through the S1 spinous process. At this point, it was first noted that interspinous ligament had been resected between L3-L4, L4-L5 and L5-S1. The facet joints at L3-L4 and L4-5 had already been resected on the right side in a subtotal fashion. The levels were confirmed by placing a probe in the defect on the right and what was felt to be the L4-L5 level and this was confirmed. The dissection was carried slightly more cephalad at the L4-L5 level exposing the ligamentum flavum, which was removed in a piecemeal fashion at L4-L5 decompressing the L4 and L5 nerve roots. Copious irrigation was performed. Attention was turned to the L5-S1 level. The interspinous ligament that had already been resected the ligamentum flavum was then removed in a piecemeal fashion exposing the central dural tear at L5-S1. The leading superior edge of S1 was resected so as to allow proper visualization of the S1 region where the dural tear was encountered. There were actually two dural tears, one about 4 millimeters and the other about 3 millimeters and there was a bridge of approximately 2 to 3 millimeters in between. At this point, using meticulous microscopic technique, 6-0 Prolene was used to perform a repair of the each of the two dural tears in a running fashion. Once satisfied with the dural repair, Valsalva maneuver was once again performed confirming watertight closure. Attention was then turned to the L4-L5 level where she clearly had a disc rupture and the disk was inspected and noted to be rather prominent in that corner and it was elected to perform a diskectomy based on MRI findings at L4-L5 on the right side. An empty disk phenomenon was encountered consistent with degenerative changes of that disc. Copious irrigation was then performed at L4-L5 and L5-S1 (two liter using bulb syringe). Please note that prior to opening the fascia, cultures were obtained of the fluid and it was sent off for both aerobic and anaerobic cultures. At this juncture, once satisfied with the redo decompression diskectomy at L4-5 as well as the dural repair at L5-S1 decision was made to close. Copious irrigation was once again performed. A small piece of Duraform was applied to the dural repair. A 4 mL of Tisseel were then injected over the laminectomy site at L4-L5 and L5-S1. Once satisfied with the closure with the hemostasis and repair, decision was made to repair the fascia. Fascia was repaired using #1 Vicryl. Subcutaneous closure using 2-0 Vicryl. Dermabond was applied. Sterile dressing was applied. The patient was then turned onto her back, awakened, and at time of this dictation was awaiting extubation. Sponge and needle counts were correct. Sterile diagnostic monitoring remained stable throughout the operation. [facility] Payton Lott DR: VARSHA JOB#: [id number] CC:
--- NOTE | 2016-10-26 22:45 | Consultation ---
DATE OF CONSULTATION: 10/26/2016 CONSULTING PHYSICIAN: Uzair Fraga M.D. REFERRING PHYSICIAN: Bola Brito M.D. REASON FOR CONSULTATION: Possible meningitis in a patient with CSF or dural leak. In addition, the patient has leukocytosis, fevers, and possible sepsis. CHIEF COMPLAINT: The patient's chief complaint coming into the hospital was intractable pain, headache, and intractable back pain, it looks like, also. HISTORY OF PRESENT ILLNESS: This is a very pleasant 26-year-old female who has a history of low back pain secondary to work related injury including extremity radiation. The patient is status post what looks like laminectomy from L4 to S1. The patient had a laminectomy recently, it looks like two days prior to admission. It looks like during the surgery, there was a CSF leak, which was repaired secondarily. It was covered with DuraSeal and FloSeal. She started to leak and had headaches. The patient came into the emergency room with fevers and leukocytosis. Infectious Disease consult was requested for IV antibiotics. I have discussed the case with Dr. Brito yesterday, and the patient was started on vancomycin and cefepime to cover MRSA and gram negatives. I saw the patient today and the patient is to undergo a repair of the dural leak. MAR was noted. Orders noted. Notes were reviewed. Case was discussed with Dr. Brito, the patient, the patient's family, and RN. REVIEW OF SYSTEMS: Constitutional: Generalized weakness and fatigue. No focal weakness. She came in with fevers. Head And Neck: She has a headache. Some neck pains and stiffness. Cardiac: No chest pain or palpitation. Gastrointestinal: No nausea, vomiting, or diarrhea. Genitourinary: No frequency or dysuria. Pulmonary: No congestion, shortness of breath, or hemoptysis. Cardiac: No chest pain or palpitations. Skin: No rash or itching. Extremities: No extremity pain. Neurologic: No seizure activity. She has had headache and neck pain. Unclear actually if she has really neck stiffness at this time, but there is pain. PAST MEDICAL HISTORY: She has history of low back pain. As described, she has a history of laminectomy from L4 to S1, and as discussed earlier, she has dural leak. She has no history of diabetes or hypertension. She has history of work related injury, which caused back pain with lower extremity radiation. ALLERGIES: Acetomenophen and codeine. FAMILY HISTORY: Noncontributory. SOCIAL HISTORY: Negative for smoking, alcohol, or drug abuse. MEDICATIONS: Upon reviewing the MAR, she is on the following medications. She is on vancomycin and cefepime. She is on fentanyl, Dilaudid, and Toradol. She is on Ativan. She is on Versed, Reglan, Zofran, Apresoline, Benadryl, IV fluid, Zofran, vancomycin, Colace, Diamox, Ambien, and Dilaudid. Please place medications in medical order and past medical history in medical order. PHYSICAL EXAMINATION: VITAL SIGNS: On admission, her temperature is 100.9, currently temperature is 99.0; pulse of 125; respiratory rate 20; saturation 97%; and blood pressure 102/64. GENERAL: The patient is alert and responsive. HEAD AND NECK: Oral exam, no thrush. Eye exam, no icterus. Normocephalic. Head and neck discomfort and headache. HEART: Regular. No gallop or murmur. ABDOMEN: Soft. Positive bowel sounds. Nontender. LUNGS: Clear bilaterally. No rhonchi or rales. SKIN: No rash or dermatitis. MUSCULOSKELETAL: No effusion or contractures. Extremities, legs are without cellulitis. PERIPHERAL VASCULAR: No evidence of cyanosis. NEUROLOGIC: Intact. Alert and oriented x3. Nonfocal. GENITOURINARY: No Miranda. LINES: Line sites are without phlebitis. Otherwise, exam is unremarkable. LABORATORY DATA: White count 14.0, hemoglobin 12.8. The patient's white count as high as 17.7. Creatinine is 0.7. LFTs are noted. Urinalysis with leukocyte esterase negative, 0 to 2 white blood cells. Cultures, blood cultures are pending at this time. IMAGING STUDIES: Chest x-ray showed no evidence of pneumonia. No acute disease. LS spine MRI, there was a fluid collection that was suggestive of a seroma and also possible cerebrospinal fluid leak. There was a dorsal possible communication with the spinal canal at the level of L5 laminotomy. There was no mention of hardware on the MRI. ASSESSMENT AND PLAN: 1. The patient is status post dural leak and plan is to do dural repair. The patient has leukocytosis, fevers, systemic inflammatory response syndrome criteria. Rule out meningitis, especially in view of fevers and leukocytosis and headache. At this time, I will continue the vancomycin. I discussed with pharmacy. We will treat for meningitis, favorite trough 15 to 20. In addition, we will give cefepime 2 g IV q.8 h. for CSF penetration to get good levels there in the CSF. Continue antibiotics hopefully. If available, we will evaluate CSF if done during the repair at CSF analysis and cultures if available. Continue antibiotics. Check followup labs. Check blood cultures. Watch creatinine closely and vancomycin. Case discussed with Dr. Brito and also the patient and the patient's family. 2. The patient has a history of low back pain with radiation to the extremities and work related injury. 3. Status post L4-S1 laminectomy. 4. Pain management per Primary. 5. Social history negative. 6. Past medical history otherwise negative. 7. Family history noncontributory. 8. MAR is noted. 9. Case discussed with RN. 10. Case discussed with Dr. Brito. 11. Notes reviewed. 12. Continue treatment per primary and consultants. Payton Steinberg JOB#: [id number] CC:
[2016-10-27] VITALS: BP 96/48
[2016-10-27 04:00] VITALS: BP 107/57
[2016-10-27] MEDS: Cefepime HCl 2 GM in D5W 110 ML IVPB SCH ×3 (04:55→17:59)
[2016-10-27] MEDS: D5 1/2NS 1,000 ML IV SCH ×2 (05:57→16:51)
[2016-10-27 07:05] LABS: MEAN CORPUSCULAR HEMOGLOBIN 32.2 PG (27.0-31.0); MEAN CORPUSCULAR HGB CONC 34.6 G/DL (32.0-36.0); MEAN CORPUSCULAR VOLUME 93 FL (80-99); MEAN PLATELET VOLUME 8.3 FL (6.5-10.1); PLATELET COUNT 231 K/UL (150-450); RED BLOOD COUNT 3.78 M/UL (4.20-5.40); RED CELL DISTRIBUTION WIDTH 10.7 % (11.6-14.8); WHITE BLOOD COUNT 11.1 K/UL (4.8-10.8)
[2016-10-27 07:33] LABS: ANION GAP 14 (5-15); CALCIUM 9.2 mg/dL (8.6-10.2); CARBON DIOXIDE 23 mEQ/L (20-30); CHLORIDE 103 mEQ/L (98-107); CREATININE 0.8 mg/dL (0.5-0.9); GLOMERULAR FILTRATION RATE > 60 mL/min (>60); HEMOLYSIS 3; POTASSIUM 4.6 mEQ/L (3.4-4.9); SODIUM 140 mEQ/L (135-145)
[2016-10-27] MEDS ORDERED: Vancomycin 1 GM in D5W 275 ML IVPB SCH (08:00)
[2016-10-27 08:02] VITALS: BP 104/63
--- NOTE | 2016-10-27 08:29 | Orthopedic Spine Progress Note ---
Ortho Spine - Progress Note Subjective Symptoms: c/o post-op back pain, improved - as compared to pre-op, other - minimal HAWKINS Objective Vital Signs: Last 24 Hour Vital Signs Date Time Temp Pulse Resp B/P Pulse Ox O2 Delivery O2 Flow Rate FiO2 10/27/16 08:02 99.5 90 21 104/63 94 Room Air 10/27/16 04:00 98.2 73 18 107/57 100 Room Air 10/27/16 00:00 98.4 70 16 96/48 100 Nasal Cannula 3.0 10/26/16 20:30 99.8 83 16 103/49 94 Nasal Cannula 3.0 10/26/16 19:45 98.1 99 16 117/69 96 Nasal Cannula 3.0 10/26/16 19:29 97.8 103 18 121/64 99 Nasal Cannula 3.0 10/26/16 19:20 100 15 108/57 99 Nasal Cannula 3.0 10/26/16 19:20 97.8 10/26/16 19:20 97.8 10/26/16 19:05 101 18 116/64 99 Nasal Cannula 3.0 10/26/16 19:00 99 20 119/59 97 Nasal Cannula 3.0 10/26/16 18:45 124 20 126/62 98 Nasal Cannula 3.0 10/26/16 18:35 105 22 113/68 98 Simple Mask 6.0 10/26/16 18:32 103 16 98 10/26/16 18:30 100 21 113/68 99 Simple Mask 6.0 10/26/16 18:28 97.8 104 20 117/64 98 Simple Mask 6.0 10/26/16 12:00 99.0 125 20 102/64 97 Room Air 10/26/16 11:37 97.7 I&O: Intake and Output 10/26/16 10/27/16 19:00 07:00 Intake Total 750 ml 1150 ml Output Total 660 ml 2000 ml Balance 90 ml -850 ml Intake Oral 800 ml IV Total 750 ml 350 ml Output Urine Total 650 ml 2000 ml Estimated Blood Loss 10 ml Wound: clean, intact Neuro Status: abnormal - unchanged from preop Assessment Procedure Performed: l4-s1 redo laminectomy and repair of dural leak Plan Plan: continue antibiotics - per ID Additional Comments: Bed rest until sunday, then start sitting protocol PIERRE GRIGGS Oct 27, 2016 08:29
[2016-10-27] MEDS: Docusate 100mg cap ORAL SCH ×2 (08:54→17:57)
[2016-10-27] MEDS: Pericolace tab ORAL SCH (08:54)
--- NOTE | 2016-10-27 10:19 | Cardiology Progress Note ---
Assessment/Plan Status Narrative 1. H/O work-related injury of LS spine 2. s/p LS spine decompression and foraminotomy R side L4-L5 and L5-S1- 08/24/16 3. CSF leak due to dural tear 4. Leukocytosis- improving 5. Tachycardia- ? volume depletion vs anxiety 6. s/p repair of dural tear. Assessment/Plan Pain meds Zofran PRN Gyne lotrimin Bed rest. x3 days DC Diamox. Discussed with Dr. Ramirez and Dr. Lott. Discussed with Family and with RN. Subjective Cardiovascular: Reports: no symptoms Respiratory: Reports: no symptoms Gastrointestinal/Abdominal: Reports: constipated Genitourinary: Reports: other - vaginal irritation Subjective 10/27/16 s/p LS spine surgery Pain improved. c/o vaginal irritation Objective Last 24 Hour Vital Signs Date Time Temp Pulse Resp B/P Pulse Ox O2 Delivery O2 Flow Rate FiO2 10/27/16 09:01 98.2 10/27/16 08:02 99.5 90 21 104/63 94 Room Air 10/27/16 04:00 98.2 73 18 107/57 100 Room Air 10/27/16 00:00 98.4 70 16 96/48 100 Nasal Cannula 3.0 10/26/16 20:30 99.8 83 16 103/49 94 Nasal Cannula 3.0 10/26/16 19:45 98.1 99 16 117/69 96 Nasal Cannula 3.0 10/26/16 19:29 97.8 103 18 121/64 99 Nasal Cannula 3.0 10/26/16 19:20 100 15 108/57 99 Nasal Cannula 3.0 10/26/16 19:20 97.8 10/26/16 19:20 97.8 10/26/16 19:05 101 18 116/64 99 Nasal Cannula 3.0 10/26/16 19:00 99 20 119/59 97 Nasal Cannula 3.0 10/26/16 18:45 124 20 126/62 98 Nasal Cannula 3.0 10/26/16 18:35 105 22 113/68 98 Simple Mask 6.0 10/26/16 18:32 103 16 98 10/26/16 18:30 100 21 113/68 99 Simple Mask 6.0 10/26/16 18:28 97.8 104 20 117/64 98 Simple Mask 6.0 10/26/16 12:00 99.0 125 20 102/64 97 Room Air 10/26/16 11:37 97.7 Neck: supple Cardiovascular: normal rate, regular rhythm, no gallop/murmur Respiratory/Chest: lungs clear Abdomen: normal bowel sounds, non tender, soft, no organomegaly Extremities: non-tender, normal inspection, no calf tenderness Intake and Output 10/26/16 10/27/16 19:00 07:00 Intake Total 750 ml 1150 ml Output Total 660 ml 2000 ml Balance 90 ml -850 ml Intake Oral 800 ml IV Total 750 ml 350 ml Output Urine Total 650 ml 2000 ml Estimated Blood Loss 10 ml Laboratory Tests Test 10/26/16 12:15 10/27/16 05:10 White Blood Count 14.0 K/UL (4.8-10.8) H 11.1 K/UL (4.8-10.8) H Red Blood Count 4.01 M/UL (4.20-5.40) L 3.78 M/UL (4.20-5.40) L Hemoglobin 12.8 G/DL (12.0-16.0) 12.2 G/DL (12.0-16.0) Hematocrit 37.1 % (37.0-47.0) 35.1 % (37.0-47.0) L Mean Corpuscular Volume 92 FL (80-99) 93 FL (80-99) Mean Corpuscular Hemoglobin 31.8 PG (27.0-31.0) H 32.2 PG (27.0-31.0) H Mean Corpuscular Hemoglobin Concent 34.4 G/DL (32.0-36.0) 34.6 G/DL (32.0-36.0) Red Cell Distribution Width 11.2 % (11.6-14.8) L 10.7 % (11.6-14.8) L Platelet Count 235 K/UL (150-450) 231 K/UL (150-450) Mean Platelet Volume 8.2 FL (6.5-10.1) 8.3 FL (6.5-10.1) Neutrophils (%) (Auto) 81.1 % (45.0-75.0) H % (45.0-75.0) Lymphocytes (%) (Auto) 11.1 % (20.0-45.0) L % (20.0-45.0) Monocytes (%) (Auto) 7.0 % (1.0-10.0) % (1.0-10.0) Eosinophils (%) (Auto) 0.3 % (0.0-3.0) % (0.0-3.0) Basophils (%) (Auto) 0.5 % (0.0-2.0) % (0.0-2.0) Sodium Level 135 mEQ/L (135-145) 140 mEQ/L (135-145) Potassium Level 4.1 mEQ/L (3.4-4.9) 4.6 mEQ/L (3.4-4.9) Chloride Level 97 mEQ/L (98-107) L 103 mEQ/L (98-107) Carbon Dioxide Level 21 mEQ/L (20-30) 23 mEQ/L (20-30) Anion Gap 17 (5-15) H 14 (5-15) Blood Urea Nitrogen 6 mg/dL (7-23) L 7 mg/dL (7-23) Creatinine 0.7 mg/dL (0.5-0.9) 0.8 mg/dL (0.5-0.9) Estimat Glomerular Filtration Rate > 60 mL/min (>60) > 60 mL/min (>60) Glucose Level 100 mg/dL (74-106) 123 mg/dL (74-106) H Calcium Level 8.9 mg/dL (8.6-10.2) 9.2 mg/dL (8.6-10.2) Microbiology Date/Time Source Procedure Growth Status 10/25/16 19:20 Blood Blood Culture - Preliminary NO GROWTH AFTER 24 HOURS Resulted 10/25/16 19:03 Blood Blood Culture - Preliminary NO GROWTH AFTER 24 HOURS Resulted 10/26/16 16:14 Back Gram Stain Pending Resulted 10/26/16 16:14 Back Aerobic Culture - Preliminary NO GROWTH AFTER 24 HOURS Resulted Objective EKG: Sinus tachy, NS ST-T changes. EMMA JENKINS Oct 27, 2016 10:19
--- NOTE | 2016-10-27 10:49 | 48 Hour Post Anesthesia Eval ---
Post Anesthesia Evaluation Procedure: Repair Lumbar Dural Leak Date of Evaluation: Oct 27, 2016 Time of Evaluation: 08:55 Blood Pressure Systolic: 104 0: 63 Pulse Rate: 90 Respiratory Rate: 21 Temperature (Fahrenheit): 99.5 O2 Sat by Pulse Oximetry: 94 Airway: patent Nausea: No Vomiting: No Pain Intensity: 3 Hydration Status: adequate Cardiopulmonary Status: at baseline Mental Status/LOC: patient returned to baseline Post-Anesthesia Complications: 0 Follow-up care needed: N/A - further care as per primary team TAMRA LANDRY M.D. Oct 27, 2016 10:49
[2016-10-27] MEDS: LORazepam 0.5mg tab ORAL SCH ×2 (11:11→19:00)
[2016-10-27 11:45] VITALS: BP 98/60
--- NOTE | 2016-10-27 11:48 | Infectious Diseases Prog Note ---
Assessment/Plan Assessment/Plan A) 1) dural/csf leak, leukocytosis, rule out meningitis, fevers, ? sepsis - s/p repair dural leak, csf culture and gram stain negative, ? csf analysis done 2) s/p L4-S1 laminectomy, hx lbp with le pain radiation, hx work related injury 3) allergies - acetaminophen and codeine 4) sh-negative, fh-neg, mar noted, d/w RN 5) d/w RN P) 1) vancomycin and cefepime for now - day # 3 abx 2) check csf studies 3) watch labs 4) d/w Dr. Brito 5) d/w patient Subjective Constitutional: Denies: fever HEENT: Denies: congestion Respiratory: Denies: shortness of breath Cardiovascular: Denies: chest pain, palpitations Gastrointestinal/Abdominal: Denies: diarrhea, nausea, vomiting Genitourinary: Reports: other - no mesa Neurologic: Denies: headache Psychiatric: Denies: depression Skin: Denies: rash Hematologic: Denies: bleeding Musculoskeletal: Reports: other - less lower back pain, Denies: pain Allergies: Coded Allergies: CODEINE (Verified Allergy, Unknown, 10/25/16) Objective Vital Signs Last 24 Hour Vital Signs Date Time Temp Pulse Resp B/P Pulse Ox O2 Delivery O2 Flow Rate FiO2 10/27/16 10:49 90 21 94 10/27/16 09:01 98.2 10/27/16 08:02 99.5 90 21 104/63 94 Room Air 10/27/16 04:00 98.2 73 18 107/57 100 Room Air 10/27/16 00:00 98.4 70 16 96/48 100 Nasal Cannula 3.0 10/26/16 20:30 99.8 83 16 103/49 94 Nasal Cannula 3.0 10/26/16 19:45 98.1 99 16 117/69 96 Nasal Cannula 3.0 10/26/16 19:29 97.8 103 18 121/64 99 Nasal Cannula 3.0 10/26/16 19:20 100 15 108/57 99 Nasal Cannula 3.0 10/26/16 19:20 97.8 10/26/16 19:20 97.8 10/26/16 19:05 101 18 116/64 99 Nasal Cannula 3.0 10/26/16 19:00 99 20 119/59 97 Nasal Cannula 3.0 10/26/16 18:45 124 20 126/62 98 Nasal Cannula 3.0 10/26/16 18:35 105 22 113/68 98 Simple Mask 6.0 10/26/16 18:32 103 16 98 10/26/16 18:30 100 21 113/68 99 Simple Mask 6.0 10/26/16 18:28 97.8 104 20 117/64 98 Simple Mask 6.0 10/26/16 12:00 99.0 125 20 102/64 97 Room Air Height (Feet): 5 Height (Inches): 4.00 Weight (Pounds): 144 General Appearance: no acute distress HEENT: normocephalic, atraumatic, anicteric, mucous membranes moist, PERRL, EOMI, pharynx normal, supple, no JVD Respiratory/Chest: lungs clear, normal breath sounds, no respiratory distress, no accessory muscle use Cardiovascular: normal rate, regular rhythm, no gallop/murmur, no JVD Abdomen: normal bowel sounds, soft, non tender, no organomegaly, non distended Genitourinary: other - no mesa Extremities: no cyanosis Skin: no rash Neurologic/Psychiatric: heel former II-XII grossly normal, alert, oriented x 3, responsive Lymphatic: no neck adenopathy Musculoskeletal: no effusion Objective chest x -ray - negative Microbiology Date/Time Source Procedure Growth Status 10/25/16 19:20 Blood Blood Culture - Preliminary NO GROWTH AFTER 24 HOURS Resulted 10/25/16 19:03 Blood Blood Culture - Preliminary NO GROWTH AFTER 24 HOURS Resulted 10/26/16 16:14 Back Gram Stain - Final Resulted 10/26/16 16:14 Back Aerobic Culture - Preliminary NO GROWTH AFTER 24 HOURS Resulted Laboratory Tests Test 10/26/16 12:15 10/27/16 05:10 White Blood Count 14.0 K/UL (4.8-10.8) H 11.1 K/UL (4.8-10.8) H Red Blood Count 4.01 M/UL (4.20-5.40) L 3.78 M/UL (4.20-5.40) L Hemoglobin 12.8 G/DL (12.0-16.0) 12.2 G/DL (12.0-16.0) Hematocrit 37.1 % (37.0-47.0) 35.1 % (37.0-47.0) L Mean Corpuscular Volume 92 FL (80-99) 93 FL (80-99) Mean Corpuscular Hemoglobin 31.8 PG (27.0-31.0) H 32.2 PG (27.0-31.0) H Mean Corpuscular Hemoglobin Concent 34.4 G/DL (32.0-36.0) 34.6 G/DL (32.0-36.0) Red Cell Distribution Width 11.2 % (11.6-14.8) L 10.7 % (11.6-14.8) L Platelet Count 235 K/UL (150-450) 231 K/UL (150-450) Mean Platelet Volume 8.2 FL (6.5-10.1) 8.3 FL (6.5-10.1) Neutrophils (%) (Auto) 81.1 % (45.0-75.0) H % (45.0-75.0) Lymphocytes (%) (Auto) 11.1 % (20.0-45.0) L % (20.0-45.0) Monocytes (%) (Auto) 7.0 % (1.0-10.0) % (1.0-10.0) Eosinophils (%) (Auto) 0.3 % (0.0-3.0) % (0.0-3.0) Basophils (%) (Auto) 0.5 % (0.0-2.0) % (0.0-2.0) Sodium Level 135 mEQ/L (135-145) 140 mEQ/L (135-145) Potassium Level 4.1 mEQ/L (3.4-4.9) 4.6 mEQ/L (3.4-4.9) Chloride Level 97 mEQ/L (98-107) L 103 mEQ/L (98-107) Carbon Dioxide Level 21 mEQ/L (20-30) 23 mEQ/L (20-30) Anion Gap 17 (5-15) H 14 (5-15) Blood Urea Nitrogen 6 mg/dL (7-23) L 7 mg/dL (7-23) Creatinine 0.7 mg/dL (0.5-0.9) 0.8 mg/dL (0.5-0.9) Estimat Glomerular Filtration Rate > 60 mL/min (>60) > 60 mL/min (>60) Glucose Level 100 mg/dL (74-106) 123 mg/dL (74-106) H Calcium Level 8.9 mg/dL (8.6-10.2) 9.2 mg/dL (8.6-10.2) Current Medications Medications (Trade) Dose Ordered Sig/Bijal Route PRN Reason Start Time Stop Time Status Last Admin Dose Admin Acetaminophen (Tylenol) 650 mg Q4H PRN ORAL Temp > 100.3 10/26/16 21:00 11/25/16 20:59 Acetazolamide 250 mg 250 mg Q6HR ORAL 10/26/16 00:00 10/27/16 16:00 10/27/16 04:55 Cefepime HCl 2 gm/ Dextrose 110 ml @ 220 mls/hr Q8HR@0400,1200,1800 IVPB 10/26/16 18:00 11/02/16 17:59 10/27/16 04:55 Clotrimazole (Gyne-Lotrimin) 1 applic BEDTIME VAGIN 10/27/16 13:00 11/26/16 12:59 Dextrose/Sodium Chloride (D5 0.45% NS) 1,000 ml @ 100 mls/hr Q10H IV 10/26/16 21:00 11/25/16 20:59 10/26/16 21:18 Diphenhydramine HCl (Benadryl) 25 mg Q6H PRN ORAL Itching 10/27/16 10:00 11/26/16 09:59 Docusate Sodium (Colace) 100 mg TWICE A DAY ORAL 10/26/16 21:00 11/25/16 20:59 10/27/16 08:54 Hydromorphone HCl (Dilaudid) 1 mg Q3H PRN SUBQ Severe Breakthru Pain (>7) 10/27/16 10:00 11/03/16 09:59 Lorazepam (Ativan) 0.5 mg Q8H ORAL 10/27/16 11:00 11/03/16 10:59 10/27/16 11:11 Magnesium Hydroxide (Mom) 30 ml QIDPRN PRN ORAL Constipation 10/26/16 18:00 11/25/16 17:59 Ondansetron HCl (Zofran) 4 mg Q4HR PRN IVP Nausea & Vomiting 10/27/16 10:00 11/26/16 09:59 Oxycodone HCl (Roxicodone) 5 mg ONCE ONCE ORAL 10/27/16 12:45 10/27/16 12:46 Oxycodone HCl (Roxicodone) 10 mg Q3H PRN ORAL Moderate Breakthru Pain (5-7) 10/27/16 10:45 11/03/16 10:44 Pantoprazole (Protonix) 40 mg BEDTIME ORAL 10/27/16 21:00 11/26/16 20:59 Promethazine HCl (Phenergan) 12.5 mg Q8H PRN IM Nausea & Vomiting 10/27/16 10:45 11/26/16 10:44 Vancomycin HCl (Vanco rx to dose) 1 ea DAILY PRN MISC Per rx protocol 10/26/16 09:00 11/25/16 08:59 Vancomycin HCl 1 gm/Dextrose 275 ml @ 183.708 mls/hr Q12HR@0800,2000 IVPB 10/27/16 08:00 11/01/16 07:59 10/27/16 09:48 CHRIS BELTRAN Oct 27, 2016 11:48
[2016-10-27] MEDS: HYDROmorphone 1mg/ml Carpuject SUBQ PRN ×2 (12:32→18:42)
[2016-10-27] MEDS ORDERED: oxyCODONE 5mg IR tab ORAL ONE (12:45)
[2016-10-27] MEDS: Clotrimazole Vaginal Cr-3 Day 21gm VAGIN SCH (13:44)
[2016-10-27 16:15] VITALS: BP 101/64
[2016-10-27] MEDS: oxyCODONE 5mg IR tab ORAL PRN ×2 (16:48→21:50)
[2016-10-27 20:00] VITALS: BP 112/52
[2016-10-27] MEDS ORDERED: Vancomycin 1.5 GM in D5W 300 ML IVPB ONE (20:00)
--- NOTE | 2016-10-27 22:15 | Consultation ---
DATE OF CONSULTATION: 10/27/2016 CONSULTING PHYSICIAN: Shaun Spangler M.D. REFERRING PHYSICIAN: Amador Lott M.D. REASON FOR CONSULTATION: Acute pain consult. HISTORY OF PRESENT ILLNESS: Dr. Amador Lott, Thank you kindly for consulting me to evaluate and render an opinion as to how to proceed in the management of the patient's acute postoperative lumbar spine pain after revision lumbar spine fusion surgery last night. The patient is a pleasant 26-year-old woman, who I saw at the bedside with her mother and . I also discussed the case in detail with yourself, Dr. Lott, after the patient presented to the emergency room with severe back pain. The patient underwent an elective decompressive lumbar spine surgery on 10/24/2016 at an outpatient surgery Center. After that elective surgery, she was discharged to home but had excruciating pain and severe headaches all overnight, she was ordered potent 8 mg Dilaudid tablets to help with the pain but with increasing fevers and worsening pain symptoms, she presented to the emergency room at [facility]. Last night, she underwent a revision lumbar spine surgery with repair of dural leak. The patient is being treated by Infectious Disease to rule out CSF meningitis. The patient has been requiring high doses of Dilaudid to help with the pain. He consulted me for acute pain consultation help improve her pain complaints. At this hospitalization through the emergency room and her emergent surgery occurred on an urgent and emergent basis. There is no opportunity for me to contact the insurance service representative for preauthorization in this urgent setting. I spent over 75 minutes in consultation with an additional 30 minutes in medical record review. PAST MEDICAL HISTORY: 1. Acute postoperative lumbar spine pain status post revision lumbar spine surgery by Dr. Amador Lott in October 2016. 2. Previous lumbar spine surgery on 10/24/2016 at outpatient surgery center complicated by postoperative severe pain, headaches, and fevers. 3. Work-related injury. MEDICATIONS AT HOME: Prior to her earlier surgery this week she was taking tramadol with limited effect, Flexeril was used as needed at night for sleep, and NSAIDs. ALLERGIES: Codeine. SOCIAL HISTORY: The patient is accompanied at the bedside by her and her mother. She does drink beer 3 to 4 beers about twice per week at social events. She denies tobacco or marijuana usage. REVIEW OF SYSTEMS: Per Dr. Brito. FAMILY HISTORY: Noncontributory. PHYSICAL EXAMINATION: HEENT: Extraocular muscles intact. Pupils are equal, round, and accommodation. CHEST: Clear to auscultation. HEART: Regular rate and rhythm. Miranda catheter in place. BREAST: Deferred to Dr. Brito. GENITOURINARY: Deferred to Dr. Brito. EXTREMITIES: Pain with range of motion. NEUROLOGIC: Detailed neurologic exam per Dr. Lott. LABORATORY STUDIES: From this morning 10/27/2016 shows white count 11, hematocrit 35, platelets 231,000. Sodium 140, potassium 4.6, chloride 103, bicarbonate 23, BUN 7, creatinine 0.8, glucose 123, calcium 9.2. IMPRESSION: 1. Acute postoperative lumbar spine pain status post revision lumbar spine surgery by Dr. Amador Lott October 2016. 2. Previous lumbar spine surgery 10/24/2016 at outpatient surgery center complicated by postoperative severe pain, headaches, and fevers. 3. Work-related injury. TREATMENT RECOMMENDATIONS: To help with this patient's pain control, I have devised the following analgesic plan. The patient was trialed on hydrocodone but this medication seemed to have no affect. She does have allergy to codeine. Her has used oxycodone after his kidney stone issues. The patient has not tried this medication, we will trial her with oxycodone with lunch today. I have asked the nurse to dose the oxycodone 5 mg instant release with lunch to reduce the risk for nausea symptoms. The patient did get mildly nauseous from the [place] tablets. I have made available Zofran as a first-line rescue antiemetic at a 4 mg dose intravenous every 4 hours. I also made available a rescue dose of Phenergan 12.5 mg intramuscular every 8 hours p.r.n. for refractory nausea symptoms. If the oxycodone is tolerated at lunchtime, I would then doubled the dose 10 mg orally every three hours pain for moderate pain. She has been tolerating Dilaudid. I reduced the dose to 1 mg subcutaneously every three hours p.r.n. for severe breakthrough pain because the patient is on bed rest for the next 48 hours after her dural leak repair, I have ordered Ativan 0.5 mg around the clock orally to help for baseline analgesia and sedation. The patient does drink beer socially to tolerate the abdomen without trouble. I have left a parameter to hold Ativan in case of oversedation. For gastrointestinal ulcer prophylaxis, I have ordered Protonix 40 mg nightly along with a p.r.n. dose of Mylanta for any GERD symptom exacerbation. I have ordered Benadryl 25 mg orally every six hours p.r.n. for itching symptoms. I placed the patient on Colace as a stool softener but we will hold off on scheduled laxatives as the patient is on bed rest for 48 hours. Infectious diseases, as meningitis could not be ruled out after emergency room presentation. I will defer DVT prophylaxis to the surgeon. Comprehensive review of the medical record was performed. Records reviewed include multiple reports from this week's hospitalization at [facility] including multiple records from the surgery suite including anesthesia record, pre and post anesthesia evaluation record, postoperative spine surgical orders and postoperative surgery note by Dr. Lott, PACU record, and PACU orders, multiple records reviewed from the pharmacy, the nursing team. A 12-lead EKG was reviewed showing normal sinus rhythm. Multiple laboratory studies reviewed. Shaun Spangler M.D. DR: Alexa JOB#: [id number] CC:
[2016-10-28] VITALS (7 sets, daily range): BP systolic 89–102; BP diastolic 48–61
[2016-10-28] MEDS: D5 1/2NS 1,000 ML IV SCH ×3 (02:58→13:14)
[2016-10-28] MEDS: Cefepime HCl 2 GM in D5W 110 ML IVPB SCH ×3 (04:07→17:53)
[2016-10-28] MEDS: LORazepam 0.5mg tab ORAL SCH ×3 (04:08→18:55)
[2016-10-28] MEDS: oxyCODONE 5mg IR tab ORAL PRN ×4 (05:50→21:35)
[2016-10-28] MEDS ORDERED: Cyclobenzaprine 10mg Tab ORAL PRN (07:15)
[2016-10-28] MEDS: Vancomycin 1250mg/D5W 275ml IVPB SCH ×4 (08:34→20:15)
[2016-10-28] MEDS: Docusate 100mg cap ORAL SCH ×2 (08:34→17:53)
--- NOTE | 2016-10-28 11:15 | Progress Note ---
DATE: 10/28/2016 ACUTE PAIN MANAGEMENT PHYSICIAN PROGRESS NOTE MEDICATIONS: Medication administration record reviewed. Medications include antibiotics, Phenergan, Zofran, oxycodone, Protonix, milk of magnesia, Ativan, Dilaudid, Colace, Benadryl, Tylenol and Lotrimin. PHYSICAL EXAMINATION: VITAL SIGNS: Vital signs, afebrile for the past 24 hours. Pulse 86, respirations 19, blood pressure 97/61, and O2 saturation 97% on room air. LABORATORY AND DIAGNOSTIC DATA: Laboratory studies from yesterday shows white count of 11, hematocrit 35, and platelets 231,000 with the vancomycin trough level of 11 yesterday at 6 p.m. I saw the patient at bedside with her . I discussed the case with the nurse RN, Evy. The patient remains on flat bed rest per the surgeon in the next 24 hours. The patient is breathing comfortably. I have placed her on around the clock scheduled oral Ativan, which has been working well for mild sedation, on purpose to help her deal with the restriction on strict bed rest, to help with the dural leak repair. The patient denies headaches. We trial the patient on multiple doses of oxycodone. She trial both 5 mg and 10 mg and 10 mg dose of oxycodone has been working effectively. She has had no adverse side effects such as nausea or vomiting. The patient also does respond well to oral Flexeril especially as a nightly sedative. I have left a prescription with her for 60 tablets of Percocet along with 25 tablets of Flexeril for outpatient usage. I have instructed the to drop this off at their local pharmacy as early as possible to let the pharmacy team contact title insurance agent for authorization. I would continue the patient's current p.r.n. regimen of analgesics, which also includes a breakthrough Dilaudid injection. The patient is on Protonix for GI ulcer prophylaxis and I will order Mylanta for any GERD symptom exacerbation as she has been remaining supine for an extended period of time. Sequential compression pneumatic devices remain in place for DVT prophylaxis. I spoke with the Infectious Disease, , who is following the patient closely. Currently, the patient is being treated for possible meningitis from her emergency room presentation. We are awaiting CSF cultures to determine any requirement for long-term antibiotics in this regard. The patient sees . closely. Shaun Spangler M.D. DR: Armin JOB#: [id number] CC:
--- NOTE | 2016-10-28 12:11 | Infectious Diseases Prog Note ---
Assessment/Plan Assessment/Plan A) 1) dural/csf leak, leukocytosis, rule out meningitis, fevers, ? sepsis - s/p repair dural leak, csf culture and gram stain negative so far 2) s/p L4-S1 laminectomy, hx lbp with le pain radiation, hx work related injury 3) allergies - acetaminophen and codeine 4) sh-negative, fh-neg, mar noted, d/w RN 5) d/w RN P) 1) vancomycin and cefepime for now - day # 4 abx 2) check csf studies and final csf culture 3) watch labs 4) orders entered and noted Subjective Constitutional: Denies: fever HEENT: Denies: congestion Respiratory: Denies: shortness of breath Cardiovascular: Denies: chest pain Gastrointestinal/Abdominal: Denies: diarrhea, nausea, vomiting Genitourinary: Reports: other - + mesa Neurologic: Denies: headache Psychiatric: Denies: depression Skin: Denies: rash Hematologic: Denies: bleeding Musculoskeletal: Denies: pain Allergies: Coded Allergies: CODEINE (Verified Allergy, Unknown, 10/25/16) Objective Vital Signs Last 24 Hour Vital Signs Date Time Temp Pulse Resp B/P Pulse Ox O2 Delivery O2 Flow Rate FiO2 10/28/16 11:19 98.1 10/28/16 08:01 89/53 10/28/16 07:58 98.1 18 94/57 96 Room Air 10/28/16 04:00 98.1 86 19 97/61 97 Room Air 10/28/16 00:00 98.1 80 19 101/52 100 Room Air 10/27/16 20:00 97.9 82 20 112/52 99 Room Air 10/27/16 19:12 97.9 10/27/16 16:15 97.9 85 20 101/64 99 Room Air Height (Feet): 5 Height (Inches): 4.00 Weight (Pounds): 144 General Appearance: no acute distress HEENT: normocephalic, atraumatic, anicteric, mucous membranes moist, PERRL, EOMI, pharynx normal, supple, no JVD Respiratory/Chest: lungs clear, normal breath sounds, no respiratory distress, no accessory muscle use Cardiovascular: normal rate, regular rhythm, no gallop/murmur, no JVD Abdomen: normal bowel sounds, soft, non tender, no organomegaly, non distended Genitourinary: other - + mesa - urine clear Extremities: no cyanosis Skin: no rash Neurologic/Psychiatric: bus operator II-XII grossly normal, alert, responsive Lymphatic: no neck adenopathy Musculoskeletal: no effusion Objective chest x -ray - negative Microbiology Date/Time Source Procedure Growth Status 10/25/16 19:20 Blood Blood Culture - Preliminary NO GROWTH AFTER 48 HOURS Resulted 10/25/16 19:03 Blood Blood Culture - Preliminary NO GROWTH AFTER 48 HOURS Resulted 10/26/16 16:14 Back Gram Stain - Final Resulted 10/26/16 16:14 Back Aerobic Culture - Preliminary NO GROWTH AFTER 48 HOURS Resulted 10/26/16 16:13 Back Anaerobic Culture - Preliminary NO GROWTH AFTER 48 HOURS Resulted Labs Test 10/25/16 18:00 10/25/16 19:50 10/26/16 12:15 10/27/16 05:10 White Blood Count 17.7 K/UL (4.8-10.8) 14.0 K/UL (4.8-10.8) 11.1 K/UL (4.8-10.8) Red Blood Count 3.67 M/UL (4.20-5.40) 4.01 M/UL (4.20-5.40) 3.78 M/UL (4.20-5.40) Hemoglobin 12.8 G/DL (12.0-16.0) 12.8 G/DL (12.0-16.0) 12.2 G/DL (12.0-16.0) Hematocrit 33.7 % (37.0-47.0) 37.1 % (37.0-47.0) 35.1 % (37.0-47.0) Mean Corpuscular Volume 92 FL (80-99) 92 FL (80-99) 93 FL (80-99) Mean Corpuscular Hemoglobin 34.8 PG (27.0-31.0) 31.8 PG (27.0-31.0) 32.2 PG (27.0-31.0) Mean Corpuscular Hemoglobin Concent 37.8 G/DL (32.0-36.0) 34.4 G/DL (32.0-36.0) 34.6 G/DL (32.0-36.0) Red Cell Distribution Width 10.9 % (11.6-14.8) 11.2 % (11.6-14.8) 10.7 % (11.6-14.8) Platelet Count 197 K/UL (150-450) 235 K/UL (150-450) 231 K/UL (150-450) Mean Platelet Volume 8.4 FL (6.5-10.1) 8.2 FL (6.5-10.1) 8.3 FL (6.5-10.1) Neutrophils (%) (Auto) 81.9 % (45.0-75.0) 81.1 % (45.0-75.0) % (45.0-75.0) Lymphocytes (%) (Auto) 14.3 % (20.0-45.0) 11.1 % (20.0-45.0) % (20.0-45.0) Monocytes (%) (Auto) 3.5 % (1.0-10.0) 7.0 % (1.0-10.0) % (1.0-10.0) Eosinophils (%) (Auto) 0.0 % (0.0-3.0) 0.3 % (0.0-3.0) % (0.0-3.0) Basophils (%) (Auto) 0.2 % (0.0-2.0) 0.5 % (0.0-2.0) % (0.0-2.0) Prothrombin Time 10.7 SEC (9.30-11.50) Prothromb Time International Ratio 1.1 (0.9-1.1) Activated Partial Thromboplast Time 28 SEC (23-33) Sodium Level 138 mEQ/L (135-145) 135 mEQ/L (135-145) 140 mEQ/L (135-145) Potassium Level 3.9 mEQ/L (3.4-4.9) 4.1 mEQ/L (3.4-4.9) 4.6 mEQ/L (3.4-4.9) Chloride Level 98 mEQ/L (98-107) 97 mEQ/L (98-107) 103 mEQ/L (98-107) Carbon Dioxide Level 26 mEQ/L (20-30) 21 mEQ/L (20-30) 23 mEQ/L (20-30) Anion Gap 14 (5-15) 17 (5-15) 14 (5-15) Blood Urea Nitrogen 8 mg/dL (7-23) 6 mg/dL (7-23) 7 mg/dL (7-23) Creatinine 0.8 mg/dL (0.5-0.9) 0.7 mg/dL (0.5-0.9) 0.8 mg/dL (0.5-0.9) Estimat Glomerular Filtration Rate > 60 mL/min (>60) > 60 mL/min (>60) > 60 mL/min (>60) Glucose Level 118 mg/dL (74-106) 100 mg/dL (74-106) 123 mg/dL (74-106) Calcium Level 9.0 mg/dL (8.6-10.2) 8.9 mg/dL (8.6-10.2) 9.2 mg/dL (8.6-10.2) Total Bilirubin 1.3 mg/dL (0.0-1.2) Direct Bilirubin 0.2 mg/dL (0.1-0.3) Aspartate Amino Transf (AST/SGOT) 47 U/L (5-40) Alanine Aminotransferase (ALT/SGPT) 18 U/L (3-33) Alkaline Phosphatase 46 U/L (35-104) Total Protein 7.2 g/dL (6.6-8.7) Albumin 4.1 g/dL (3.5-5.2) Globulin 3.1 g/dL Albumin/Globulin Ratio 1.3 (1.0-2.7) Urine Color Pale yellow Urine Appearance Clear Urine pH 6 (4.5-8.0) Urine Specific [place] 1.010 (1.005-1.035) Urine Protein Negative (NEGATIVE) Urine Glucose (UA) Negative (NEGATIVE) Urine Ketones Negative (NEGATIVE) Urine Occult Blood 1+ (NEGATIVE) Urine Nitrite Negative (NEGATIVE) Urine Bilirubin Negative (NEGATIVE) Urine Urobilinogen Normal MG/DL (0.0-1.0) Urine Leukocyte Esterase Negative (NEGATIVE) Urine RBC 2-4 /HPF (0 - 2) Urine WBC 0-2 /HPF (0 - 2) Urine Squamous Epithelial Cells Few /LPF (NONE/OCC) Urine Bacteria Few /HPF (NONE) Urine HCG, Qualitative Negative Test 6/2/17 18:34 Vancomycin Level Trough 10.5 ug/mL (5.0-12.0) Laboratory Tests Test 10/27/16 18:34 Vancomycin Level Trough 10.5 ug/mL (5.0-12.0) Current Medications Medications (Trade) Dose Ordered Sig/Bijal Route PRN Reason Start Time Stop Time Status Last Admin Dose Admin Acetaminophen (Tylenol) 650 mg Q4H PRN ORAL Temp > 100.3 10/26/16 21:00 11/25/16 20:59 10/28/16 10:20 Al Hydroxide/Mg Hydroxide (Mylanta) 30 ml Q6H PRN ORAL gerd 10/28/16 07:15 11/27/16 07:14 Cefepime HCl 2 gm/ Dextrose 110 ml @ 220 mls/hr Q8HR@0400,1200,1800 IVPB 10/26/16 18:00 11/02/16 17:59 10/28/16 04:07 Clotrimazole 1 applic 1 applic BEDTIME VAGIN 10/27/16 13:00 10/29/16 21:01 10/27/16 13:44 Cyclobenzaprine HCl (Flexeril) 10 mg Q8HR PRN ORAL Muscle Spasm 10/28/16 07:15 11/27/16 07:14 Dextrose/Sodium Chloride (D5 0.45% NS) 1,000 ml @ 100 mls/hr Q10H IV 10/26/16 21:00 11/25/16 20:59 10/28/16 10:28 Diphenhydramine HCl (Benadryl) 25 mg Q6H PRN ORAL Itching 10/27/16 10:00 11/26/16 09:59 10/27/16 20:58 Docusate Sodium (Colace) 100 mg TWICE A DAY ORAL 10/26/16 21:00 11/25/16 20:59 10/28/16 08:34 Hydromorphone HCl (Dilaudid) 1 mg Q3H PRN SUBQ Severe Breakthru Pain (>7) 10/27/16 10:00 11/03/16 09:59 10/27/16 18:42 Lorazepam (Ativan) 0.5 mg Q8H ORAL 10/27/16 11:00 11/03/16 10:59 10/28/16 11:07 Magnesium Hydroxide (Mom) 30 ml QIDPRN PRN ORAL Constipation 10/26/16 18:00 11/25/16 17:59 Ondansetron HCl (Zofran) 4 mg Q4HR PRN IVP Nausea & Vomiting 10/27/16 10:00 11/26/16 09:59 Oxycodone HCl (Roxicodone) 10 mg Q3H PRN ORAL Moderate Breakthru Pain (5-7) 10/27/16 10:45 11/03/16 10:44 10/28/16 08:59 Pantoprazole (Protonix) 40 mg BEDTIME ORAL 10/27/16 21:00 11/26/16 20:59 10/27/16 20:58 Promethazine HCl (Phenergan) 12.5 mg Q8H PRN IM Nausea & Vomiting 10/27/16 10:45 11/26/16 10:44 Vancomycin HCl 1 ea 1 ea DAILY PRN MISC Per rx protocol 10/26/16 09:00 11/25/16 08:59 Vancomycin HCl/ Dextrose (Vancomycin/D5W) 275 ml @ 183.333 mls/hr Q12HR@0800,2000 IVPB 10/28/16 08:00 11/02/16 07:59 10/28/16 08:34 CHRIS BELTRAN Oct 28, 2016 12:11
--- NOTE | 2016-10-28 13:02 | Cardiology Progress Note ---
Assessment/Plan Status Narrative 1. H/O work-related injury of LS spine 2. s/p LS spine decompression and foraminotomy R side L4-L5 and L5-S1- 08/24/16 3. CSF leak due to dural tear 4. Leukocytosis- improving 5. Tachycardia- improved. 6. s/p repair of dural tear. Assessment/Plan Decrease IV Fluids. Advance diet. Pain meds Zofran PRN Gyne lotrimin Bed rest. x1 more day Diamox Dc'd Discussed with Dr. Ramirez. Discussed with Family and with RN. Subjective Cardiovascular: Denies: chest pain Respiratory: Denies: cough, orthopnea, shortness of breath Gastrointestinal/Abdominal: Reports: constipated Genitourinary: Reports: no symptoms, other Subjective 10/27/16 s/p LS spine surgery Pain improved. c/o vaginal irritation. 10/28/16- c/o back pain, taking pain meds. Vaginal Sx improved.Tolerationg PO intake., no BM. Objective Last 24 Hour Vital Signs Date Time Temp Pulse Resp B/P Pulse Ox O2 Delivery O2 Flow Rate FiO2 10/28/16 11:19 98.1 10/28/16 08:01 89/53 10/28/16 07:58 98.1 18 94/57 96 Room Air 10/28/16 04:00 98.1 86 19 97/61 97 Room Air 10/28/16 00:00 98.1 80 19 101/52 100 Room Air 10/27/16 20:00 97.9 82 20 112/52 99 Room Air 10/27/16 19:12 97.9 10/27/16 16:15 97.9 85 20 101/64 99 Room Air Neck: supple Cardiovascular: normal peripheral pulses, normal rate, regular rhythm, no gallop/murmur Respiratory/Chest: lungs clear Abdomen: normal bowel sounds, non tender, soft, no organomegaly, no mass Extremities: non-tender, normal inspection, no calf tenderness, no swelling Intake and Output 10/27/16 10/28/16 19:00 07:00 Intake Total 2495 ml 1700 ml Output Total 3350 ml 2500 ml Balance -855 ml -800 ml Intake Oral 1200 ml 400 ml IV Total 1295 ml 1300 ml Output Urine Total 3350 ml 2500 ml # Voids 2 # Bowel Movements 1 Laboratory Tests Test 10/27/16 18:34 Vancomycin Level Trough 10.5 ug/mL (5.0-12.0) Microbiology Date/Time Source Procedure Growth Status 10/25/16 19:20 Blood Blood Culture - Preliminary NO GROWTH AFTER 48 HOURS Resulted 10/25/16 19:03 Blood Blood Culture - Preliminary NO GROWTH AFTER 48 HOURS Resulted 10/26/16 16:14 Back Gram Stain - Final Resulted 10/26/16 16:14 Back Aerobic Culture - Preliminary NO GROWTH AFTER 48 HOURS Resulted 10/26/16 16:13 Back Anaerobic Culture - Preliminary NO GROWTH AFTER 48 HOURS Resulted Objective EKG: Sinus tachy, NS ST-T changes. EMMA JENKINS Oct 28, 2016 13:02
[2016-10-28] MEDS ORDERED: NS 275ml ONE (17:26)
[2016-10-28] MEDS ORDERED: D5 1/2NS 1000ml IV ONE ×2 (17:26→17:30)
[2016-10-28] MEDS ORDERED: Tubing IV Secondary IV ONE ×2 (17:26→17:30)
[2016-10-28] MEDS: Clotrimazole Vaginal Cr-3 Day 21gm VAGIN SCH (20:15)
[2016-10-29] VITALS (8 sets, daily range): BP systolic 97–114; BP diastolic 56–67
--- NOTE | 2016-10-29 01:10 | Cardiology Report ---
APPROVED REPORT EKG Measurement Heart [id number] Sinus tachycardia Nonspecific ST and T wave abnormality Abnormal ECG
[2016-10-29] MEDS: Cefepime HCl 2 GM in D5W 110 ML IVPB SCH ×3 (03:34→17:11)
[2016-10-29] MEDS: LORazepam 0.5mg tab ORAL SCH ×3 (03:34→19:49)
[2016-10-29] MEDS: Docusate 100mg cap ORAL SCH ×2 (08:51→17:12)
[2016-10-29] MEDS: oxyCODONE 5mg IR tab ORAL PRN ×2 (08:51→20:43)
[2016-10-29] MEDS: Vancomycin 1250mg/D5W 275ml IVPB SCH ×2 (08:52)
[2016-10-29] MEDS: D5 1/2NS 1,000 ML IV SCH (08:52)
--- NOTE | 2016-10-29 18:57 | Infectious Diseases Prog Note ---
Assessment/Plan Assessment/Plan A) 1) dural/csf leak, leukocytosis, rule out meningitis, fevers - gram stain negative for organisms and csf culture negative at 72 hours makes meningitis less likely 2) s/p L4-S1 laminectomy, hx lbp with le pain radiation, hx work related injury 3) allergies - acetaminophen and codeine 4) sh-negative, fh-neg, mar noted, d/w RN 5) d/w RN P) 1) discontinue vancomycin and cefepime 2) watch labs 3) d/w Dr Brito 4) orders entered and noted 5) d/w pt and family Subjective Constitutional: Reports: other - headache less, Denies: fever HEENT: Denies: congestion Respiratory: Denies: shortness of breath Cardiovascular: Denies: chest pain Gastrointestinal/Abdominal: Denies: diarrhea, nausea, vomiting Genitourinary: Reports: other - no cva pain Neurologic: Denies: headache Psychiatric: Denies: depression Skin: Denies: rash Hematologic: Denies: bleeding Musculoskeletal: Denies: pain Allergies: Coded Allergies: CODEINE (Verified Allergy, Unknown, 10/25/16) Objective Vital Signs Last 24 Hour Vital Signs Date Time Temp Pulse Resp B/P Pulse Ox O2 Delivery O2 Flow Rate FiO2 10/29/16 15:52 98.1 64 16 114/63 99 10/29/16 12:00 97.2 88 18 113/64 98 10/29/16 10:00 98.8 82 18 98/57 98 Room Air 10/29/16 08:00 97.9 95 18 105/60 96 Room Air 10/29/16 04:00 97.6 79 18 101/67 98 Room Air 10/29/16 00:00 97.9 75 18 99/65 99 Room Air 10/28/16 20:00 98.1 71 18 102/60 98 Room Air Height (Feet): 5 Height (Inches): 4.00 Weight (Pounds): 144 General Appearance: no acute distress HEENT: normocephalic, atraumatic, anicteric, mucous membranes moist, PERRL, EOMI, pharynx normal, supple, no JVD Respiratory/Chest: lungs clear, normal breath sounds, no respiratory distress, no accessory muscle use Cardiovascular: normal rate, regular rhythm, no gallop/murmur Abdomen: normal bowel sounds, soft, non tender, no organomegaly, non distended Genitourinary: other - no mesa Extremities: no cyanosis Skin: no rash 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, alert, oriented x 3, responsive Lymphatic: no neck adenopathy Musculoskeletal: no effusion Objective chest x -ray - negative Microbiology Date/Time Source Procedure Growth Status 10/25/16 19:20 Blood Blood Culture - Preliminary NO GROWTH AFTER 72 HOURS Resulted 10/26/16 16:14 Back Gram Stain - Final Resulted 10/26/16 16:14 Back Aerobic Culture - Preliminary NO GROWTH AFTER 72 HOURS Resulted Labs Test 10/27/16 05:10 10/27/16 18:34 10/29/16 06:45 White Blood Count 11.1 K/UL (4.8-10.8) Red Blood Count 3.78 M/UL (4.20-5.40) Hemoglobin 12.2 G/DL (12.0-16.0) Hematocrit 35.1 % (37.0-47.0) Mean Corpuscular Volume 93 FL (80-99) Mean Corpuscular Hemoglobin 32.2 PG (27.0-31.0) Mean Corpuscular Hemoglobin Concent 34.6 G/DL (32.0-36.0) Red Cell Distribution Width 10.7 % (11.6-14.8) Platelet Count 231 K/UL (150-450) Mean Platelet Volume 8.3 FL (6.5-10.1) Neutrophils (%) (Auto) % (45.0-75.0) Lymphocytes (%) (Auto) % (20.0-45.0) Monocytes (%) (Auto) % (1.0-10.0) Eosinophils (%) (Auto) % (0.0-3.0) Basophils (%) (Auto) % (0.0-2.0) Sodium Level 140 mEQ/L (135-145) Potassium Level 4.6 mEQ/L (3.4-4.9) Chloride Level 103 mEQ/L (98-107) Carbon Dioxide Level 23 mEQ/L (20-30) Anion Gap 14 (5-15) Blood Urea Nitrogen 7 mg/dL (7-23) Creatinine 0.8 mg/dL (0.5-0.9) Estimat Glomerular Filtration Rate > 60 mL/min (>60) Glucose Level 123 mg/dL (74-106) Calcium Level 9.2 mg/dL (8.6-10.2) Vancomycin Level Trough 10.5 ug/mL (5.0-12.0) 13.8 ug/mL (5.0-12.0) Laboratory Tests Test 10/29/16 06:45 Vancomycin Level Trough 13.8 ug/mL (5.0-12.0) H Current Medications Medications (Trade) Dose Ordered Sig/Bijal Route PRN Reason Start Time Stop Time Status Last Admin Dose Admin Acetaminophen (Tylenol) 650 mg Q4H PRN ORAL Temp > 100.3 10/26/16 21:00 11/25/16 20:59 10/28/16 10:20 Al Hydroxide/Mg Hydroxide 30 ml 30 ml Q6H PRN ORAL gerd 10/28/16 07:15 11/27/16 07:14 Cefepime HCl/ Dextrose (Maxipime/D5W) 110 ml @ 220 mls/hr Q8HR@0400,1200,1800 IVPB 10/26/16 18:00 11/02/16 17:59 10/29/16 17:11 Clotrimazole 1 applic 1 applic BEDTIME VAGIN 10/27/16 13:00 10/29/16 21:01 10/28/16 20:15 Cyclobenzaprine HCl (Flexeril) 10 mg Q8HR PRN ORAL Muscle Spasm 10/28/16 07:15 11/27/16 07:14 Dextrose/Sodium Chloride (D5 0.45% NS) 1,000 ml @ 50 mls/hr Q20H IV 10/28/16 13:00 11/27/16 12:59 10/29/16 08:52 Diphenhydramine HCl (Benadryl) 25 mg Q6H PRN ORAL Itching 10/27/16 10:00 11/26/16 09:59 10/27/16 20:58 Docusate Sodium (Colace) 100 mg TWICE A DAY ORAL 10/26/16 21:00 11/25/16 20:59 10/29/16 17:12 Hydromorphone HCl (Dilaudid) 1 mg Q3H PRN SUBQ Severe Breakthru Pain (>7) 10/27/16 10:00 11/03/16 09:59 10/27/16 18:42 Lorazepam (Ativan) 0.5 mg Q8H ORAL 10/27/16 11:00 11/03/16 10:59 10/29/16 11:18 Magnesium Hydroxide (Mom) 30 ml QIDPRN PRN ORAL Constipation 10/26/16 18:00 11/25/16 17:59 Ondansetron HCl (Zofran) 4 mg Q4HR PRN IVP Nausea & Vomiting 10/27/16 10:00 11/26/16 09:59 10/29/16 07:29 Oxycodone HCl (Roxicodone) 10 mg Q3H PRN ORAL Moderate Breakthru Pain (5-7) 10/27/16 10:45 11/03/16 10:44 10/29/16 08:51 Pantoprazole (Protonix) 40 mg BEDTIME ORAL 10/27/16 21:00 11/26/16 20:59 10/28/16 20:15 Promethazine HCl (Phenergan) 12.5 mg Q8H PRN IM Nausea & Vomiting 10/27/16 10:45 11/26/16 10:44 10/29/16 11:29 Vancomycin HCl 1 ea 1 ea DAILY PRN MISC Per rx protocol 10/26/16 09:00 11/25/16 08:59 Vancomycin HCl/ Dextrose (Vancomycin/D5W) 275 ml @ 183.333 mls/hr Q12HR@0800,2000 IVPB 10/28/16 08:00 11/02/16 07:59 10/29/16 08:52 CHRIS BELTRAN Oct 29, 2016 18:57
[2016-10-29] MEDS: Clotrimazole Vaginal Cr-3 Day 21gm VAGIN SCH (20:30)
[2016-10-29 20:46] LABS: BASOPHILS % (AUTO) 0.4 % (0.0-2.0); EOSINOPHILS % (AUTO) 9.9 % (0.0-3.0); LYMPHOCYTES % (AUTO) 18.8 % (20.0-45.0); MEAN CORPUSCULAR HEMOGLOBIN 34.6 PG (27.0-31.0); MEAN CORPUSCULAR HGB CONC 37.7 G/DL (32.0-36.0); MEAN CORPUSCULAR VOLUME 92 FL (80-99); MEAN PLATELET VOLUME 6.9 FL (6.5-10.1); MONOCYTES % (AUTO) 8.7 % (1.0-10.0); NEUTROPHILS % (AUTO) 62.1 % (45.0-75.0); PLATELET COUNT 265 K/UL (150-450); RED BLOOD COUNT 3.52 M/UL (4.20-5.40); RED CELL DISTRIBUTION WIDTH 10.5 % (11.6-14.8); WHITE BLOOD COUNT 7.1 K/UL (4.8-10.8)
[2016-10-29 21:00] LABS: ALANINE AMINOTRANSFERASE 115 U/L (3-33); ANION GAP 16 (5-15); ASPARTATE AMINO TRANSFERASE 125 U/L (5-40); CARBON DIOXIDE 20 mEQ/L (20-30); CHLORIDE 99 mEQ/L (98-107); CREATININE 0.8 mg/dL (0.5-0.9); GLOMERULAR FILTRATION RATE > 60 mL/min (>60); HEMOLYSIS 3; POTASSIUM 3.6 mEQ/L (3.4-4.9); SODIUM 135 mEQ/L (135-145); TOTAL PROTEIN 6.7 g/dL (6.6-8.7)
[2016-10-29 21:32] LABS: BILIRUBIN,DIRECT 0.2 mg/dL (0.1-0.3)
--- NOTE | 2016-10-29 23:52 | Cardiology Progress Note ---
Assessment/Plan Status Narrative 1. H/O work-related injury of LS spine 2. s/p LS spine decompression and foraminotomy R side L4-L5 and L5-S1- 08/24/16 3. CSF leak due to dural tear 4. Leukocytosis- improving 5. Tachycardia- improved. 6. s/p repair of dural tear. 7. Elevated LFTs- ? due to meds, anesthesia. Assessment/Plan Advance diet. Pain meds Zofran PRN plus Phenergan sitting protocol. DC ABx follow up og LFTs. Discussed with Dr. Monet. Subjective Cardiovascular: Reports: no symptoms Respiratory: Reports: no symptoms Gastrointestinal/Abdominal: Reports: no symptoms Subjective 10/27/16 s/p LS spine surgery Pain improved. c/o vaginal irritation. 10/28/16- c/o back pain, taking pain meds. Vaginal Sx improved.Tolerationg PO intake., no BM. 10/29/16 Has been at bed rest. c/o nausea Objective Last 24 Hour Vital Signs Date Time Temp Pulse Resp B/P Pulse Ox O2 Delivery O2 Flow Rate FiO2 10/29/16 20:15 98.1 105 18 97/56 92 Room Air 10/29/16 15:52 98.1 64 16 114/63 99 10/29/16 12:00 97.2 88 18 113/64 98 10/29/16 10:00 98.8 82 18 98/57 98 Room Air 10/29/16 08:00 97.9 95 18 105/60 96 Room Air 10/29/16 04:00 97.6 79 18 101/67 98 Room Air 10/29/16 00:00 97.9 75 18 99/65 99 Room Air Cardiovascular: normal rate, regular rhythm, no gallop/murmur Respiratory/Chest: lungs clear Abdomen: non tender Extremities: non-tender, no calf tenderness, no swelling Intake and Output 10/28/16 10/29/16 19:00 07:00 Intake Total 1000 ml 610 ml Output Total 3300 ml Balance -2300 ml 610 ml Intake Oral 600 ml IV Total 400 ml 610 ml Output Urine Total 3300 ml Laboratory Tests Test 10/29/16 06:45 10/29/16 20:30 Vancomycin Level Trough 13.8 ug/mL (5.0-12.0) H White Blood Count 7.1 K/UL (4.8-10.8) Red Blood Count 3.52 M/UL (4.20-5.40) L Hemoglobin 12.2 G/DL (12.0-16.0) Hematocrit 32.4 % (37.0-47.0) L Mean Corpuscular Volume 92 FL (80-99) Mean Corpuscular Hemoglobin 34.6 PG (27.0-31.0) H Mean Corpuscular Hemoglobin Concent 37.7 G/DL (32.0-36.0) H Red Cell Distribution Width 10.5 % (11.6-14.8) L Platelet Count 265 K/UL (150-450) Mean Platelet Volume 6.9 FL (6.5-10.1) Neutrophils (%) (Auto) 62.1 % (45.0-75.0) Lymphocytes (%) (Auto) 18.8 % (20.0-45.0) L Monocytes (%) (Auto) 8.7 % (1.0-10.0) Eosinophils (%) (Auto) 9.9 % (0.0-3.0) H Basophils (%) (Auto) 0.4 % (0.0-2.0) Sodium Level 135 mEQ/L (135-145) Potassium Level 3.6 mEQ/L (3.4-4.9) Chloride Level 99 mEQ/L (98-107) Carbon Dioxide Level 20 mEQ/L (20-30) Anion Gap 16 (5-15) H Blood Urea Nitrogen 8 mg/dL (7-23) Creatinine 0.8 mg/dL (0.5-0.9) Estimat Glomerular Filtration Rate > 60 mL/min (>60) Glucose Level 107 mg/dL (74-106) H Calcium Level 9.0 mg/dL (8.6-10.2) Total Bilirubin 1.1 mg/dL (0.0-1.2) Direct Bilirubin 0.2 mg/dL (0.1-0.3) Aspartate Amino Transf (AST/SGOT) 125 U/L (5-40) H Alanine Aminotransferase (ALT/SGPT) 115 U/L (3-33) H Alkaline Phosphatase 54 U/L (35-104) Total Protein 6.7 g/dL (6.6-8.7) Albumin 3.4 g/dL (3.5-5.2) L Globulin 3.3 g/dL Albumin/Globulin Ratio 1.0 (1.0-2.7) Objective EKG: Sinus tachy, NS ST-T changes. EMMA JENKINS Oct 29, 2016 23:52
[2016-10-30 00:10] VITALS: BP 104/59
[2016-10-30] MEDS: LORazepam 0.5mg tab ORAL SCH ×2 (02:29→09:17)
[2016-10-30 04:12] VITALS: BP 92/59
[2016-10-30] MEDS: D5 1/2NS 1,000 ML IV SCH (04:44)
[2016-10-30 08:11] VITALS: BP 97/67
[2016-10-30] MEDS: Docusate 100mg cap ORAL SCH (09:18)
[2016-10-30] MEDS: oxyCODONE 5mg IR tab ORAL PRN (09:43)
--- NOTE | 2016-10-30 11:19 | Cardiology Progress Note ---
Assessment/Plan Status Narrative 1. H/O work-related injury of LS spine 2. s/p LS spine decompression and foraminotomy R side L4-L5 and L5-S1- 08/24/16 3. CSF leak due to dural tear 4. Leukocytosis- improving 5. Tachycardia- improved. 6. s/p repair of dural tear. 7. Elevated LFTs- ? due to meds, anesthesia. Assessment/Plan DC home F/U with Dr. Lott and Dr. Ramirez. Decrease Pain meds- Oral meds only follow up of LFTs as out patient. Discussed with RN, and Family Subjective Cardiovascular: Reports: no symptoms Respiratory: Reports: no symptoms Gastrointestinal/Abdominal: Reports: constipated Genitourinary: Reports: no symptoms Subjective 10/27/16 s/p LS spine surgery Pain improved. c/o vaginal irritation. 10/28/16- c/o back pain, taking pain meds. Vaginal Sx improved.Tolerationg PO intake., no BM. 10/29/16 Has been at bed rest. c/o nausea 10/30- ambulated, no H/A, seen by Dr. Lott- cleared for DC Objective Last 24 Hour Vital Signs Date Time Temp Pulse Resp B/P Pulse Ox O2 Delivery O2 Flow Rate FiO2 10/30/16 08:11 97.9 95 20 97/67 97 Room Air 10/30/16 04:12 98.1 91 18 92/59 88 Room Air 10/30/16 00:10 97.7 96 19 104/59 100 Room Air 10/29/16 20:15 98.1 105 18 97/56 92 Room Air 10/29/16 15:52 98.1 64 16 114/63 99 10/29/16 12:00 97.2 88 18 113/64 98 Neck: non-tender Cardiovascular: normal rate, regular rhythm, no gallop/murmur Respiratory/Chest: lungs clear Abdomen: normal bowel sounds, non tender, soft, no organomegaly, no mass Extremities: non-tender, no calf tenderness, no swelling Intake and Output 10/29/16 10/30/16 19:00 07:00 Intake Total 895 ml 550 ml Output Total 1400 ml 800 ml Balance -505 ml -250 ml Intake Oral 470 ml IV Total 425 ml 550 ml Output Urine Total 1400 ml 800 ml # Voids 1 Laboratory Tests Test 10/29/16 20:30 White Blood Count 7.1 K/UL (4.8-10.8) Red Blood Count 3.52 M/UL (4.20-5.40) L Hemoglobin 12.2 G/DL (12.0-16.0) Hematocrit 32.4 % (37.0-47.0) L Mean Corpuscular Volume 92 FL (80-99) Mean Corpuscular Hemoglobin 34.6 PG (27.0-31.0) H Mean Corpuscular Hemoglobin Concent 37.7 G/DL (32.0-36.0) H Red Cell Distribution Width 10.5 % (11.6-14.8) L Platelet Count 265 K/UL (150-450) Mean Platelet Volume 6.9 FL (6.5-10.1) Neutrophils (%) (Auto) 62.1 % (45.0-75.0) Lymphocytes (%) (Auto) 18.8 % (20.0-45.0) L Monocytes (%) (Auto) 8.7 % (1.0-10.0) Eosinophils (%) (Auto) 9.9 % (0.0-3.0) H Basophils (%) (Auto) 0.4 % (0.0-2.0) Sodium Level 135 mEQ/L (135-145) Potassium Level 3.6 mEQ/L (3.4-4.9) Chloride Level 99 mEQ/L (98-107) Carbon Dioxide Level 20 mEQ/L (20-30) Anion Gap 16 (5-15) H Blood Urea Nitrogen 8 mg/dL (7-23) Creatinine 0.8 mg/dL (0.5-0.9) Estimat Glomerular Filtration Rate > 60 mL/min (>60) Glucose Level 107 mg/dL (74-106) H Calcium Level 9.0 mg/dL (8.6-10.2) Total Bilirubin 1.1 mg/dL (0.0-1.2) Direct Bilirubin 0.2 mg/dL (0.1-0.3) Aspartate Amino Transf (AST/SGOT) 125 U/L (5-40) H Alanine Aminotransferase (ALT/SGPT) 115 U/L (3-33) H Alkaline Phosphatase 54 U/L (35-104) Total Protein 6.7 g/dL (6.6-8.7) Albumin 3.4 g/dL (3.5-5.2) L Globulin 3.3 g/dL Albumin/Globulin Ratio 1.0 (1.0-2.7) Objective EKG: Sinus tachy, NS ST-T changes. EMMA JENKINS Oct 30, 2016 11:19
--- NOTE | 2016-10-30 11:36 | Discharge Summary ---
Discharge Summary Hospital Course Date of Admission October 25, 2016 at 18:47 Date of Discharge Admitting Diagnosis intractable pain HPI Ernestina Hill is a 26 year old female who was admitted on October 25, 2016 at 18: 47 for Intractable Pain Hospital Course DSD # [id number] Discharge Discharge Disposition Patient was discharged to Discharge Diagnoses: EMMA JENKINS Oct 30, 2016 11:36
[2016-10-30 11:52] VITALS: BP 97/62
--- NOTE | 2016-10-31 06:15 | Discharge Summary ---
DATE OF ADMISSION: 10/25/2016 DATE OF DISCHARGE: 10/30/2016 ATTENDING PHYSICIANS: 1. Bola Brito M.D. 2. Shellie Ramirez M.D. REASON FOR ADMISSION: Intractable back pain with spinal fluid leak postoperatively. HISTORY OF PRESENT ILLNESS: Documented on admission history and physical. Briefly, the patient is a 26-year-old female with history of work-related injury to the LS spine, who underwent LS spine surgery at L4-L5 and L5-S1 on 10/24/2016 at the surgery center performed by Dr. Ramirez. The patient presented on the day of admission with intractable pain as well as presence of a spinal fluid leak from the surgical site. The patient was evaluated in the emergency room and admitted for further management. HOSPITAL COURSE: The patient was admitted to the medical/surgical floor and was put at strict bedrest and started on IV antibiotics. The patient was seen in consultation by Dr. Fraga for Infectious Disease and was continued on antibiotics with vancomycin and cefepime. The patient's pain was controlled with Dilaudid as well as oral medications. She was seen in consultation by Dr. Amador Lott and felt that the patient will need a surgical intervention for closure of dural tear. On 10/26/2016, the patient was taken to the operating room and underwent redo laminectomy at L4-L5 and L5-S1 with exploration of the wound and identification of dural tear at L5-S1. She had a primary repair of dural tear and diskectomy on the right side of L4-L5. Postoperatively, the patient did well and had no further CSF leak. Her fever subsided and her white count decreased to normal. She was kept at bedrest for three days and was eventually able to have her head elevated and on 10/30/2016 she was able to ambulate without difficulty. Her pain was being controlled with oral medications and she is being discharged home on oral medications. Of note, she has had slight elevation of her liver function tests probably due to anesthesia or medications, but she remains asymptomatic. She also had developed symptoms of vaginitis, which was treated with Lotrimin and resolved. DISCHARGE DIAGNOSES: 1. Status post diskectomy of L4-L5 and L5-S1 complicated by dural tear. 2. Status post redo laminectomy at L4-L5 and L5-S1. 3. Exploration of the wound and repair of dural tear of L5 and S1. 4. Intractable pain, improved. 5. Liver function abnormalities. PLAN: Followup will be with Dr. Amador Lott and Dr. Shellie Ramirez. The patient will need to have followup liver function tests to confirm resolution of LFT abnormalities. Medications, the patient will be maintained on oral pain medications with [place] p.r.n. She has been advised to avoid bending, lifting, or excessive physical activity until she has been seen by Dr. Lott and Dr. Ramirez. She will use Colace and milk of magnesia at home. Bola Brito M.D. DR: Lb JOB#: [id number] CC: Bola Brito M.D.; Fax#: [phone] Lott M.D. ; Fax#: [phone] Ramirez M.D.; Fax#: [phone]
== END 2016-10-30 12:45 | disposition home or self-care (01) | DRG 29 ==
LOC: EDBEDREQ 18:14 → EMR 18:31 → 3E 18:47 → EDBEDREQ 21:26 → 3E 22:15 → UNDODISIN 10-29 10:30
PROC: 0SB20ZZ Excision of Lumbar Vertebral Disc, Open Approach (ICD-10-PCS; principal; 2016-10-26 16:00)
PROC: 00QT0ZZ Repair Spinal Meninges, Open Approach (ICD-10-PCS; principal; 2016-10-26 16:00)
DX: G97.82 Other postprocedural complications and disorders of nervous system (principal); G96.0 Cerebrospinal fluid leak; G96.11 Dural tear; G89.18 Other acute postprocedural pain; Y83.8 Other surgical procedures as the cause of abnormal reaction of the patient, or of later complication, without mention of misadventure at the time of the procedure; Y92.89 Other specified places as the place of occurrence of the external cause; R50.9 Fever, unspecified; Z88.6 Allergy status to analgesic agent; R00.0 Tachycardia, unspecified
CPT/HCPCS: 36415; 71010; 72020; 72148; 76000; 80048; 80053; 80202; 81003; 81025; 82248; 85025; 85610; 85730; 86850; 86900; 86901; 87040; 87070; 87075; 87205; 93005; 94003; 94150; C9399; J2250; J2405; J2710